=== PATIENT | female | born 1950 | race Caucasian/White ===

== ENCOUNTER → 2018-02-27 08:32 | Outpatient (CLI) | payer MEDICARE, SELFPAY ==
[2018-02-27 09:39] LABS: Alanine Aminotransferase 36 IU/L (9-52); Aspartate Aminotransferase 26 IU/L (14-36); BUN Creatinine Ratio 33.3 (6-22); Calcium 9.2 mg/dL (8.4-10.2); Cholesterol 234 mg/dL (140-199); Estimated Glomerular Filt Rate > 60.0 mL/min (>60); Glucose 101 mg/dL (80-110); HDL Cholesterol 86 mg/dL (40-60); HEMOLYSIS < 15 (0-50); LDL Cholesterol Calculated 131 mg/dL (<100); Potassium 4.6 mmol/L (3.4-5.1); Sodium 140 mmol/L (137-145); Triglycerides 85 mg/dL (35-150)
[2018-02-27 10:07] LABS: TSH w/ Reflex to FT4 0.47 uIU/mL (0.47-4.68)
[2018-02-27 10:35] LABS: Vitamin B12 > 1000 pg/mL (239-931)
== END ==
PROVIDERS: PCP Internal Medicine; Visit Provider Internal Medicine
DX: F41.1 Generalized anxiety disorder (principal); G31.84 Mild cognitive impairment of uncertain or unknown etiology; E78.5 Hyperlipidemia, unspecified; E03.9 Hypothyroidism, unspecified
CPT/HCPCS: 36415; 80048; 80061; 82607; 84443; 84450; 84460

== ENCOUNTER → 2018-04-30 11:12 | Outpatient (CLI) | payer MEDICARE, SELFPAY ==
--- NOTE | 2018-04-30 | DI.MG.S_ITS ---
BILATERAL DIGITAL SCREENING MAMMOGRAM 3D/2D WITH CAD: 04/30/2018 CLINICAL: Routine screening. Comparison is made to exams dated: 04/05/2016 mammogram, 09/05/1999 mammogram, and 08/09/1997 mammogram - [facility]. There are scattered fibroglandular elements in both breasts. Current study was also evaluated with a Computer Aided Detection (CAD) system. No significant masses, calcifications, or other findings are seen in either breast. There has been no significant interval change. IMPRESSION: NEGATIVE There is no mammographic evidence of malignancy. A 1 year screening mammogram is recommended. This exam was interpreted at Station ID: [id number]. NOTE: For mammograms, a report in lay terms will be sent to the patient. Approximately 15% of breast malignancies will not be visualized mammographically. In the management of a palpable breast mass, a negative mammogram must not discourage biopsy of a clinically suspicious lesion. Electronically Signed By: Reinaldo hart/chilo:05/01/2018 17:36:21 letter sent: Normal Exam ACR BI-RADS Category 1: Negative 3341F
== END ==
PROVIDERS: Family Provider Internal Medicine; PCP Internal Medicine; Visit Provider Internal Medicine
DX: Z12.31 Encounter for screening mammogram for malignant neoplasm of breast (principal)
CPT/HCPCS: 77063; 77067

== ENCOUNTER 2018-07-08 08:33 | Day surgery (SDC) | payer MEDICARE, OTHER, SELFPAY ==
--- NOTE | 2018-07-08 | PATH_ITS ---
[facility] Accession Number: [id number] . 01 Material submitted: . BIOPSY AT 10 CM . 02 Diagnosis: 10 CM, Biopsy: Superficial fragments of colonic mucosa with features suggestive of mucosal prolapse. Negative for dysplasia and malignancy. Additional levels were examined. I/07/11/2018 . 02 Electronically signed: . Bere Cullen MD, Pathologist NPI- [id number] . 01 Gross description: . Received in one formalin-filled container labeled with the patient's name and labeled 10 cm, are three less than 0.1 cm to 0.1 cm portions of tissue, entirely submitted in cassette A. ([id number]) /FRR . 02 Pathologist provided ICD-10: K63.5 . 02 CPT . 482417 Specimen Comment: A duplicate report has been generated due to demographic updates. Performed at: 01 [facility] [address] [facility], [place], [place] [id number] MD Ector Joyner MD Phone: [phone] Performed at: [address] [facility] [address] [place], [place] [id number] MD Fantasma Viramontes MD Phone: [phone]
[2018-07-08 09:01] VITALS: BP 145/69; PULSE 75; RESP 16; TEMP 36.2; O2SAT 94; BMI 38.9
[2018-07-08] MEDS: SODIUM CHLORIDE 0.9% 1,000 ML 200 ML IV (09:14)
--- NOTE | 2018-07-08 09:59 | PM.HP.1 ---
History of Present Illness Date Patient Seen: 07/08/18 Time Patient Seen: 09:59 Chief complaint: colonoscopy [id number] Narrative: Patient is a woman here for screening colonoscopy. She has been having diarrhea. No family history of colon cancer. Patient History Medical History History of hyperthyroidism (Acute) Depression (Chronic) Elevated cholesterol (Chronic) Hypothyroidism (acquired) (Chronic) Leg fracture (Resolved) Surgical History Status post hysterectomy (Resolved) Family & Social History Social History: household members spouse Meds Home Medications Medication Instructions Recorded Confirmed Type CA PANTOTHENATE/FOLIC ACID/VIT 1 tab PO Q DAY #0 10/26/11 History (MULTIVITAMIN) Calcium Carbonate/Vitamin D 1 cap PO Q DAY #0 10/26/11 History (#CALCIUM) Fish Oil (#FISH OIL) 1 iu PO Q DAY #0 10/26/11 History Loperamide Hydrochloride (#IMODIUM 2 mg PO PRN #0 10/26/11 History A-D) LOVASTATIN (MEVACOR) 40 mg PO QDAYPM #90 05/16/12 Rx acetaminophen-codeine 1 - 2 tab PO SEE INSTRUCTIONS PRN 09/11/12 Rx #30 Allergies Allergy/AdvReac Type Severity Reaction Status Date / Time No Known Drug Allergies Allergy Verified 07/08/18 08:55 Review of Systems Review of Systems All systems reviewed & are unremarkable except as noted in HPI and below Exam Vital Signs (past 8 hours): - 07/08/18 09:01 Temperature 97.2 F L Pulse Rate 75 Respiratory Rate 16 Blood Pressure 145/69 H Pulse Oximetry 94 Oxygen Delivery Method Room Air Narrative Exam Narrative: Operative obese woman in no apparent distress. Eyes are nonicteric. Lungs are clear to auscultation without rales or rhonchi. Heart regular rate and rhythm without murmur gallop. Abdomen is protuberant soft nontender without mass. Alert and orient x3. Assessment & Plan Plan: Assessment/Plan Narrative: Patient for a screening colonoscopy. She has been having diarrhea. I discussed the procedure with her. Risks of bleeding, perforation which would necessitate a major operation, failure to find removal lesions in the potential tattoo were all discussed. She appears to understand wishes to proceed.
--- NOTE | 2018-07-08 10:05 | PM.PREOP ---
Pre-operative Note Interval Note Pre-op Check: Yes History & Physical exam performed today by Physician Changes: No ASA Class (for procedural sedation): II
--- NOTE | 2018-07-08 10:36 | SUR.OPER ---
stool sample taken for c.diff and o&p diagnostics
[2018-07-08 10:42] VITALS: BP 134/71; PULSE 70; RESP 13; TEMP 36.2; O2SAT 96
[2018-07-08] MEDS: fentaNYL 250 MCG/5 ML INJ IV (10:42)
[2018-07-08] MEDS: MIDAZOLAM 5 MG/5 ML VIAL IV (10:42)
--- NOTE | 2018-07-08 10:44 | P.OP.ENDO_ITS ---
Operative Date/Time/Diagnoses Date of procedure: 07/08/18 Time of procedure: 10:40 Pre-op diagnosis: Screening examination. Intermittent diarrhea for 20 years. Post-op diagnosis: same (Small polyp at 10 cm. Diverticulosis of the sigmoid colon. Small internal hemorrhoids without ulceration.) Procedure & Clinicians Study performed: Colonoscopy with cold biopsy Same procedure as scheduled: Yes Indications: Screening last colonoscopy 15 years ago Surgeon: Ben Madrigal Procedure Notes SCOAP/Timeout: Performed Procedure in detail: The patient was placed in the left lateral decubitus position and underwent IV sedation directed by the surgeon consisting of fentanyl and Versed. Digital exam was remarkable for decreased sphincter tone.. The scope was inserted and advanced through the rectum into the sigmoid , descending, transverse, and ascending colon. Her colon was quite tortuous and she was noted to have sigmoid diverticulosis. Additionally we had to apply pressure in insert a stiffener in order to get through to the cecum.. The cecum was reached identified by the ileocecal valve and the appendiceal opening. The scope was gradually brought out. One Polyp were found at 10 cm from the anal verge. It was quite diminutive.. The scope ultimately was retroflexed in the rectum. The appearance was remarkable for internal hemorrhoids without ulceration. The scope was removed and the patient tolerated the procedure well Scope withdrawal time: 9 min Sedation minutes: 27 Findings: diverticulosis (Sigmoid), internal hemorrhoids (Small) and polyp (10 cm from the anal verge) Recommendations: Colonscopy in 5 years (Unless the polyp is not neoplastic. In that case 10 years would be more appropriate.) Plan for aftercare: Will receive letter regarding pathology Follow up: as needed Disposition: PACU
[2018-07-08 10:47] VITALS: BP 137/66; PULSE 67; RESP 11; O2SAT 96
--- NOTE | 2018-07-08 10:53 | SUR.PHASEI ---
stable pacu, outcomes adequate fro transfer- unable to chart in record.
[2018-07-08 10:54] VITALS: BP 133/74; PULSE 65; RESP 10; TEMP 36.4; O2SAT 96
[2018-07-08 11:02] VITALS: BP 121/71; PULSE 69; RESP 16; TEMP 36.4; O2SAT 96
--- NOTE | 2018-07-08 11:17 | SUR.PHASEII ---
Pt's 's brought in, d/c instructions discussed, both voiced an understanding. pt dressed when ready and left when ready and in stable condition.
--- NOTE | 2018-07-08 11:18 | SUR.PHASEII ---
outcomes met, unable to chart.
[2018-07-08 13:53] LABS: Clostridium Difficile Tox PCR Negative for C. diff
== END 2018-07-08 11:18 | disposition home or self-care (01) ==
PROVIDERS: Family Provider Internal Medicine; PCP Internal Medicine; Visit Provider Specialist
PROC: 0DJD8ZZ Inspection of Lower Intestinal Tract, Via Natural or Artificial Opening Endoscopic (ICD-10-PCS; CPT 45378; principal; 2018-07-08 09:45)
DX: Z12.11 Encounter for screening for malignant neoplasm of colon (principal); K57.30 Diverticulosis of large intestine without perforation or abscess without bleeding; K64.8 Other hemorrhoids; E03.9 Hypothyroidism, unspecified; E78.00 Pure hypercholesterolemia, unspecified; F32.9 Major depressive disorder, single episode, unspecified; K63.5 Polyp of colon
CPT/HCPCS: 45380; 87015; 87045; 87177; 87427; 87493; 87899; 88305; 99152; 99153; J2250; J3010

== ENCOUNTER → 2019-04-23 14:00 | Outpatient (CLI) | payer MEDICARE, OTHER, SELFPAY ==
--- NOTE | 2019-04-23 | DI.RAD.S_ITS ---
PROCEDURE: XR PELVIS 1-2V INDICATIONS: right hip pain for 7 weeks TECHNIQUE: Single view(s) of the pelvis acquired. COMPARISON: None. FINDINGS: Bones: No fractures or dislocations. No suspicious bony lesions. Mild bilateral hip degeneration. Lower lumbar spondylosis. Soft tissues: Visualized bowel gas pattern is normal. No suspicious soft tissue calcifications. IMPRESSION: No fracture. If the patient's pain or other symptoms persist, consider further evaluation with MRI Dictated by: Leonardo Lomas M.D. on 04/23/2019 at 15:05 Approved by: Leonardo Lomas M.D. on 04/23/2019 at 15:06
--- NOTE | 2019-04-23 | DI.RAD.S_ITS ---
PROCEDURE: XR FOOT RT MIN 3V INDICATIONS: R KNEE/FOOT PAIN TECHNIQUE: 3 views of the foot were acquired. COMPARISON: [facility], , FOOT 3V RIGHT, 05/14/2007, 16:31. FINDINGS: Bones: No fractures or dislocations. No suspicious bony lesions. Severe first MTP joint degeneration with [id number]-mt-fvro appearance. Diffuse interphalangeal degenerative joint disease. Diffuse hindfoot and midfoot joint degeneration. Small plantar calcaneal spur. Soft tissues: No tibiotalar joint effusion. Achilles tendon appears normal. IMPRESSION: Severe first MTP joint degeneration, progressed since 05/14/07. Dictated by: Leonardo Lomas M.D. on 04/23/2019 at 15:08 Approved by: Leonardo Lomas M.D. on 04/23/2019 at 15:12
--- NOTE | 2019-04-23 | DI.RAD.S_ITS ---
PROCEDURE: XR KNEE RT 1TO2V INDICATIONS: R KNEE/FOOT PAIN TECHNIQUE: 3 views of the knee were acquired. COMPARISON: [facility], CR, XR PELVIS 1-2V, 04/23/2019, 14:11. [facility], CR, KNEE 3V LEFT, 09/25/2015, 21:43. FINDINGS: Bones: Linear lucency projecting in the patella on the sunrise view only. There is lateral patellar tilt. Moderate medial compartment joint degeneration. Soft tissues: Small joint effusion IMPRESSION: Linear lucency projects on the sunrise view only, suggestive of nondisplaced patellar fracture although technically indeterminate and seen on one view only. Please correlate clinically and if confirmation is necessary, cross-sectional imaging could be performed. Small joint effusion. Moderate degenerative joint disease. Dictated by: Leonardo Lomas M.D. on 04/23/2019 at 15:06 Approved by: Leonardo Lomas M.D. on 04/23/2019 at 15:08
== END ==
PROVIDERS: Family Provider Internal Medicine; PCP Internal Medicine; Referring Provider Acupuncturist; Visit Provider Internal Medicine
DX: M25.561 Pain in right knee (principal); M25.551 Pain in right hip; M25.461 Effusion, right knee; M17.11 Unilateral primary osteoarthritis, right knee; M79.671 Pain in right foot; M19.071 Primary osteoarthritis, right ankle and foot; M77.31 Calcaneal spur, right foot
CPT/HCPCS: 72170; 73560; 73630

== ENCOUNTER → 2019-04-24 07:29 | Outpatient (CLI) | payer MEDICARE, OTHER, SELFPAY ==
[2019-04-24 08:41] LABS: Alanine Aminotransferase 20 IU/L (9-52); Aspartate Aminotransferase 28 IU/L (14-36); BUN Creatinine Ratio 41.7 (6-22); Blood Urea Nitrogen 25 mg/dL (7-17); Calcium 9.3 mg/dL (8.4-10.2); Carbon Dioxide 31 mmol/L (22-32); Chloride 101 mmol/L (98-107); Cholesterol 177 mg/dL (140-199); Estimated Glomerular Filt Rate > 60.0 mL/min (>60); Glucose 101 mg/dL (80-110); HDL Cholesterol 69 mg/dL (40-60); HEMOLYSIS < 15 (0-50); LDL Cholesterol Calculated 81 mg/dL (<100); Potassium 4.2 mmol/L (3.4-5.1); Sodium 138 mmol/L (137-145); Triglycerides 133 mg/dL (35-150)
[2019-04-24 09:08] LABS: TSH w/ Reflex to FT4 0.02 uIU/mL (0.47-4.68)
[2019-04-24 09:44] LABS: Free T4, Direct Thyroxine 2.07 ng/dL (0.78-2.19)
== END ==
PROVIDERS: PCP Internal Medicine; Visit Provider Internal Medicine
DX: E03.9 Hypothyroidism, unspecified (principal); E78.5 Hyperlipidemia, unspecified; M85.80 Other specified disorders of bone density and structure, unspecified site
CPT/HCPCS: 36415; 80048; 80061; 84439; 84443; 84450; 84460

== ENCOUNTER → 2019-09-01 10:43 | Outpatient (CLI) | payer MEDICARE, OTHER, SELFPAY ==
[2019-09-01 12:35] LABS: Alanine Aminotransferase 21 IU/L (<35); Aspartate Aminotransferase 30 IU/L (14-36); Blood Urea Nitrogen 21 mg/dL (7-17); Calcium 9.8 mg/dL (8.4-10.2); Carbon Dioxide 34 mmol/L (22-32); Chloride 98 mmol/L (98-107); Cholesterol 195 mg/dL (140-199); Estimated Glomerular Filt Rate > 60.0 mL/min (>60); Glucose 103 mg/dL (80-110); HDL Cholesterol 80 mg/dL (40-60); HEMOLYSIS < 15 (0-50); LDL Cholesterol Calculated 91 mg/dL (<100); Potassium 4.7 mmol/L (3.4-5.1); Sodium 139 mmol/L (137-145); Triglycerides 122 mg/dL (35-150)
[2019-09-01 13:03] LABS: TSH w/ Reflex to FT4 3.75 uIU/mL (0.47-4.68)
== END ==
PROVIDERS: Family Provider Acupuncturist; PCP Internal Medicine; Visit Provider Internal Medicine
DX: Z13.1 Encounter for screening for diabetes mellitus (principal); E78.5 Hyperlipidemia, unspecified; E03.9 Hypothyroidism, unspecified; M85.80 Other specified disorders of bone density and structure, unspecified site
CPT/HCPCS: 36415; 80048; 80061; 84443; 84450; 84460

== ENCOUNTER → 2019-11-05 08:11 | Outpatient (CLI) | payer MEDICARE, OTHER, SELFPAY ==
[2019-11-05 09:56] LABS: TSH w/ Reflex to FT4 1.77 uIU/mL (0.47-4.68)
== END ==
PROVIDERS: Family Provider Acupuncturist; PCP Internal Medicine; Visit Provider Internal Medicine
DX: E03.9 Hypothyroidism, unspecified (principal)
CPT/HCPCS: 36415; 84443

== ENCOUNTER → 2020-06-15 11:54 | Outpatient (CLI) | payer MEDICARE, OTHER, SELFPAY ==
--- NOTE | 2020-06-15 12:05 | DI.MG.S_ITS ---
Patient Name: KURT LOVE date: 1950 Sex: F Attending Physician: Alexis Indications: Date: 06/15/2020 11:59 At the request of: PEDRO LANGSTON Procedure: MM screening mammo BI BILATERAL DIGITAL SCREENING MAMMOGRAM 3D/2D WITH CAD: 06/15/2020 CLINICAL: Routine screening. Comparison is made to exams dated: 04/30/2018 mammogram, 04/05/2016 mammogram, and 09/05/1999 mammogram - [facility]. There are scattered fibroglandular elements in both breasts. Current study was also evaluated with a Computer Aided Detection (CAD) system. No significant masses, calcifications, or other findings are seen in either breast. There has been no significant interval change. IMPRESSION: NEGATIVE There is no mammographic evidence of malignancy. A 1 year screening mammogram is recommended. This exam was interpreted at Station ID: [id number]. NOTE: For mammograms, a report in lay terms will be sent to the patient. Approximately 15% of breast malignancies will not be visualized mammographically. In the management of a palpable breast mass, a negative mammogram must not discourage biopsy of a clinically suspicious lesion. Electronically Signed By: Mp Hardy M.D., jr/chilo:06/15/2020 15:13:12 letter sent: Normal Exam ACR BI-RADS Category 1: Negative 3341F
== END ==
PROVIDERS: Family Provider Acupuncturist; PCP Internal Medicine; Referring Provider Internal Medicine; Visit Provider Internal Medicine
DX: Z12.31 Encounter for screening mammogram for malignant neoplasm of breast (principal)
CPT/HCPCS: 77063; 77067

== ENCOUNTER → 2020-07-24 14:53 | Outpatient (CLI) | payer MEDICARE, OTHER, SELFPAY ==
[2020-07-25 14:59] LABS: COVID19 Sendout Not Detected (Not Detect)
== END ==
PROVIDERS: Family Provider Acupuncturist; PCP Internal Medicine; Visit Provider Physician Assistant
DX: Z01.812 Encounter for preprocedural laboratory examination (principal)
CPT/HCPCS: 87635

== ENCOUNTER 2020-07-27 13:11 | Day surgery (SDC) | payer MEDICARE, OTHER, SELFPAY ==
--- NOTE | 2020-07-26 17:47 | PM.PREOP ---
Pre-operative Note COVID-19 COVID-19 status: Negative Interval Note History & Physical reviewed/Exam performed by Physician: Yes Changes to H&P: No H&P completed within 30 days and has changed as indicated here:: Ate a cookie at 8 AM. Patient monitored and cleared for anesthesia.
--- NOTE | 2020-07-27 08:08 | PM.OP.1 ---
Operative Date/Time/Diagnoses Date of procedure: 07/27/20 Time of procedure: 13:15 Procedure & Clinicians Procedure: Preoperative diagnoses: 1. Left significant nuclear sclerotic and cortical cataract. 2. Posttraumatic stress disorder 3. History of trauma 4. Anxiety 5. Thyroid disorder 6. Chooses a multifocal Panoptix implant to improve distance at distance intermediate and near. Postoperative diagnoses: 1. Cataract removed by phacoemulsification with placement of posterior chamber intraocular lens. Procedure: Phacoemulsification with posterior chamber intraocular lens implant Surgeon: Leti Weiner MD Complications: None Specimen: None Implant: TFAT00+24.5 Blood loss: None Anesthesia: Retrobulbar with monitored standby Description of procedure: Patient presents with a complaint of decreased vision due to cataract which is affecting activities of daily living. The patient wants surgery to improve vision. The patient was taken to the operating room and given IV sedation. A retrobulbar block consisting of 6 cc of 2% xylocaine without epinephrine mixed half and half with 0.5% Marcaine with 1 cc of hyaluronidase added is placed between the medial and lateral 1/3 of the inferior orbital rim. The eye is manually massaged for 30 sec, prepped using Betadine solution, and draped in the usual sterile fashion. Temporal approach was made, a 1 mm side-port incision was made 90? from the proposed clear corneal incision position. Phenylephrine 1.5% mixed with 1% xylocaine 0.2 cc was placed into the anterior chamber. Viscoat followed by Lev was then placed. A 2.6 mm clear incision with a 2.6 mm blade was placed. A 360 degree capsulorrhexis style capsulotomy was then performed with a cystitome needle on a Healon. Narrow anterior chamber. Hydrodelineation and hydrodissection were performed. The phacoemulsification unit is introduced, and sculpting notice used to groove the central lens. It is then removed in chopping mode. Epi nucleus is removed with epinuclear mode and irrigation aspiration was used to remove the peripheral cortex. The posterior capsule is polished. The Panolptix intraocular lens is selected, inspected, power confirmed, and placed in the posterior chamber. It was carefully centered with the visual axis The wound was stromally hydrated and tested for leaks, there was none and it was left sutureless. Vigamox 0.1 cc was placed into the anterior chamber. Kenalog 0.2 cc was placed in the superior subconjunctival space. A drop of antibiotic and was placed and the eye was patched and shielded. The patient was stable and returned to the recovery room in excellent condition. Dictated by: Leti Weiner MD Copy to: [facility] Same procedure as scheduled: Yes
[2020-07-27] MEDS: PROPARACAINE 0.5% OPHTH SOL 2 DROPS EYE-OP (13:56)
[2020-07-27] MEDS: CATARACT EYE COMPOUND (10 DROPS/SYRINGE) 3 DROPS EYE-OP (13:58)
[2020-07-27 14:02] VITALS: BP 122/70; PULSE 62; RESP 14; TEMP 36.8; O2SAT 100; BMI 34.3
--- NOTE | 2020-07-27 15:13 | SUR.OPER ---
Supine on eye stretcher, head on extension cradle secured with tape. Arms tucked at sides with blanket. Pillow under knees.
[2020-07-27] MEDS: BALANCED SALT IRRIG SOLN NO.2 500 ML, EPINEPHrine 1 MG IRR (15:20)
[2020-07-27] MEDS: CHONDROIDTIN/SOD HYALURONATE 1.05 ML SYRINGE INTRAOCULA (15:20)
[2020-07-27] MEDS: HYALURONATE SODIUM 10 MG/ML SYRINGE INJ (15:21)
[2020-07-27] MEDS: ERYTHROMYCIN OPHTH 1 GM OINT 1 APPLIC EYE-LEFT (15:21)
[2020-07-27] MEDS: TRIAMCINOLONE 50 MG/5 ML VIAL INJ (15:21)
[2020-07-27] MEDS: PHENYLEPHRINE/LIDOCAINE VIAL (OR) 0.2 ML EYE-OP (15:22)
[2020-07-27] MEDS: MOXIFLOXACIN INJ 5 MG/ML VIAL EYE-OP (15:22)
[2020-07-27] MEDS: LIDOCAINE 2% 4 ML, BUPIVACAINE 0.5% (PF) 4 ML, HYALURONIDASE 150 UNIT INJ (15:23)
[2020-07-27 15:45] VITALS: BP 124/60; PULSE 60; RESP 17; TEMP 36.7; O2SAT 98
== END 2020-07-27 16:00 | disposition home or self-care (01) ==
LOC: OR 13:14
PROVIDERS: Family Provider Acupuncturist; PCP Internal Medicine; Referring Provider Ophthalmology; Visit Provider Ophthalmology
PROC: (CPT 66984; principal; 2020-07-27 15:15)
DX: H25.812 Combined forms of age-related cataract, left eye (principal); F43.10 Post-traumatic stress disorder, unspecified; F41.9 Anxiety disorder, unspecified
CPT/HCPCS: 66984; J0171; J2250; J3010; J3301; J3470; V2788

== ENCOUNTER → 2020-08-07 14:55 | Outpatient (CLI) | payer MEDICARE, OTHER, SELFPAY ==
[2020-08-08 13:21] LABS: COVID19 Sendout Not Detected (Not Detect)
== END ==
PROVIDERS: Family Provider Acupuncturist; PCP Internal Medicine; Visit Provider Nurse Practitioner
DX: Z01.812 Encounter for preprocedural laboratory examination (principal)
CPT/HCPCS: 87635

== ENCOUNTER 2020-08-10 09:20 | Day surgery (SDC) | payer MEDICARE, OTHER, SELFPAY ==
--- NOTE | 2020-08-09 12:04 | PM.PREOP ---
Pre-operative Note COVID-19 COVID-19 status: Negative Interval Note History & Physical reviewed/Exam performed by Physician: Yes Changes to H&P: No
--- NOTE | 2020-08-09 12:09 | P.OP_ITS ---
Operative Date/Time/Diagnoses Date of procedure: 08/10/20 Time of procedure: 10:45 Procedure & Clinicians Procedure: Preoperative diagnoses: 1. Right nuclear sclerotic and cortical cataract. 2. Posttraumatic stress disorder 3. Anxiety 4. Thyroid disorder 5. These are for a multifocal implant 6. Strabismus Postoperative diagnoses: 1. Cataract removed by phacoemulsification with placement of posterior chamber intraocular lens. Procedure: Phacoemulsification with posterior chamber intraocular lens implant Surgeon: Leti Weiner MD Complications: None Specimen: None Implant:TFAT00+25.0 Blood loss: None Anesthesia: Retrobulbar with monitored standby Description of procedure: Patient presents with a complaint of decreased vision due to cataract which is affecting activities of daily living distance and near. The patient wants surgery to improve vision. She lacks a multifocal panoptix IOL which has been so inserted previously into her left. She does wear prism glasses and understands she will still need these to reduce double vision. The patient was taken to the operating room and given IV sedation. A retrobulbar block consisting of 6 cc of 2% xylocaine without epinephrine mixed half and half with 0.5% Marcaine with 1 cc of hyaluronidase added is placed between the medial and lateral 1/3 of the inferior orbital rim. The eye is manually massaged for 30 sec, prepped using Betadine solution, and draped in the usual sterile fashion. Temporal approach was made, a 1 mm side-port incision was made 90? from the proposed clear corneal incision position. Phenylephrine 1.5% mixed with 1% xylocaine 0.2 cc was placed into the anterior chamber. Viscoat followed by Healon was then placed. A 2.6 mm clear incision with a 2.6 mm blade was placed. A 360 degree capsulorrhexis style capsulotomy was then performed with a cystitome needle on a Healon. There is a narrow anterior chamber Hydrodelineation and hydrodissection were performed. The phacoemulsification unit is introduced, and sculpting notice used to groove the central lens. It is then removed in chopping mode. Epi nucleus is removed with epinuclear mode and irrigation aspiration was used to remove the peripheral cortex. The posterior capsule is polished. The intraocular lens is selected, inspected, power confirmed, and placed in the posterior chamber. It was carefully centered in the pupillary axis The wound was stromally hydrated and tested for leaks, there was none and it was left sutureless. Vigamox 0.1 cc was placed into the anterior chamber. Kenalog 0.2 cc was placed in the superior subconjunctival space. A drop of antibiotic and was placed and the eye was patched and shielded. The patient was stable and returned to the recovery room in excellent condition. Dictated by: Leti Weiner MD Copy to: [facility] Same procedure as scheduled: Yes
[2020-08-10] MEDS: PROPARACAINE 0.5% OPHTH SOL 2 DROPS EYE-OP (10:19)
[2020-08-10 10:20] VITALS: BP 109/56; PULSE 65; RESP 12; TEMP 36.2; O2SAT 97; BMI 34.3
[2020-08-10] MEDS: CATARACT EYE COMPOUND (10 DROPS/SYRINGE) 3 DROPS EYE-OP (10:35)
[2020-08-10] MEDS: ERYTHROMYCIN OPHTH 1 GM OINT 1 APPLIC EYE-RIGHT (11:29)
[2020-08-10] MEDS: CHONDROIDTIN/SOD HYALURONATE 1.05 ML SYRINGE INTRAOCULA (11:29)
[2020-08-10] MEDS: HYALURONATE SODIUM 10 MG/ML SYRINGE INJ (11:30)
[2020-08-10] MEDS: PHENYLEPHRINE/LIDOCAINE VIAL (OR) 0.2 ML EYE-OP (11:31)
[2020-08-10] MEDS: TRIAMCINOLONE 50 MG/5 ML VIAL INJ (11:31)
[2020-08-10] MEDS: MOXIFLOXACIN INJ 5 MG/ML VIAL EYE-OP (11:31)
[2020-08-10] MEDS: LIDOCAINE 2% 4 ML, BUPIVACAINE 0.5% (PF) 4 ML, HYALURONIDASE 150 UNIT INJ (11:32)
[2020-08-10] MEDS: BALANCED SALT IRRIG SOLN NO.2 500 ML, EPINEPHrine 1 MG IRR (11:32)
[2020-08-10 12:09] VITALS: BP 103/58; PULSE 56; RESP 14; TEMP 36.4; O2SAT 97
== END 2020-08-10 12:27 | disposition home or self-care (01) ==
LOC: OR 09:25
PROVIDERS: Family Provider Acupuncturist; PCP Internal Medicine; Referring Provider Internal Medicine; Visit Provider Ophthalmology
PROC: (CPT 66984; principal; 2020-08-10 10:45)
DX: H25.811 Combined forms of age-related cataract, right eye (principal); H50.9 Unspecified strabismus; F41.9 Anxiety disorder, unspecified; F43.10 Post-traumatic stress disorder, unspecified
CPT/HCPCS: 66984; J0171; J2704; J3301; J3470; V2788

== ENCOUNTER → 2020-11-22 14:47 | Outpatient (ROUT) | payer MEDICARE, OTHER, SELFPAY ==
[2020-11-22 14:50] LABS: RBC Urine None Seen (0-5/HPF)
[2020-11-22 15:00] LABS: Appearance Urine UA CLOUDY; Bilirubin Urine UA 1+ (NEGATIVE); Color Urine UA YELLOW; Glucose Urine UA NEGATIVE (Negative); Ketones Urine UA TRACE (NEGATIVE); Leukocyte Esterase Urine UA TRACE (NEGATIVE); Nitrite Urine UA POSITIVE (Negative); Occult Blood Urine UA NEGATIVE (Negative); Protein Urine UA 1+ (Negative); Specific Gravity Urine UA 1.025 (1.000-1.035); Urobilinogen Urine UA 0.2 E.U./dL (0.2)
[2020-11-22 15:15] LABS: Bacteria Urine Many (>30); Calcium Oxalate Crystals Urine Moderate; Culture Indicated Urine Specimen Cultured; Mucus Urine 1+ (Negative); Squamous Epithelial Cell Urine 1-5 /HPF (0-5/HPF); WBC Urine 5-10/HPF (0-5/HPF)
[2020-11-22 15:29] LABS: Ictotest Urine Negative (Negative)
[2020-11-22 15:46] LABS: Alanine Aminotransferase 16 IU/L (<35); Albumin 4.3 g/dL (3.5-5.0); Albumin Globulin Ratio 1.5 (1.0-2.8); Alkaline Phosphatase 80 U/L (38-126); Aspartate Aminotransferase 24 IU/L (14-36); BUN Creatinine Ratio 28.6 (6-22); Bilirubin Total 0.4 mg/dL (0.2-1.3); Blood Urea Nitrogen 22 mg/dL (7-17); Calcium 9.8 mg/dL (8.4-10.2); Carbon Dioxide 31 mmol/L (22-32); Chloride 100 mmol/L (98-107); Cholesterol 211 mg/dL (140-199); Estimated Glomerular Filt Rate > 60.0 mL/min (>60); Globulin 2.9 g/dL (1.7-4.1); Glucose 101 mg/dL (80-110); HDL Cholesterol 95 mg/dL (40-60); HEMOLYSIS < 15 (0-50); LDL Cholesterol Calculated 95 mg/dL (<100); Potassium 4.3 mmol/L (3.4-5.1); Sodium 135 mmol/L (137-145); Total Protein 7.2 g/dL (6.3-8.2); Triglycerides 105 mg/dL (35-150)
== END ==
PROVIDERS: Family Provider Acupuncturist; PCP Internal Medicine; Visit Provider Internal Medicine
DX: R30.0 Dysuria (principal); E03.9 Hypothyroidism, unspecified; E78.5 Hyperlipidemia, unspecified
CPT/HCPCS: 80053; 80061; 81001; 84443; 87077; 87086; 87186

== ENCOUNTER → 2020-12-19 07:50 | Outpatient (CLI) | payer MEDICARE, OTHER, SELFPAY ==
[2020-12-19] MEDS: COVID-19 VACC, Ad26(JANSSEN)/PF 0.5 ML IM (07:58)
== END ==
PROVIDERS: Family Provider Acupuncturist; PCP Internal Medicine; Visit Provider Internal Medicine
DX: Z23 Encounter for immunization (principal)
CPT/HCPCS: 0031A; 91303

== ENCOUNTER → 2021-09-25 13:40 | Outpatient (CLI) | payer MEDICARE, OTHER, SELFPAY ==
--- NOTE | 2021-09-25 13:43 | DI.MG.S_ITS ---
BILATERAL DIGITAL SCREENING MAMMOGRAM 3D/2D WITH CAD: 09/25/2021 CLINICAL: Routine screening. Comparison is made to exams dated: 06/15/2020 mammogram, 04/30/2018 mammogram, and 04/05/2016 mammogram - [facility]. There are scattered fibroglandular elements in both breasts. Current study was also evaluated with a Computer Aided Detection (CAD) system. No significant masses, calcifications, or other findings are seen in either breast. There has been no significant interval change. IMPRESSION: NEGATIVE There is no mammographic evidence of malignancy. A 1 year screening mammogram is recommended. This exam was interpreted at Station ID: [id number]. NOTE: For mammograms, a report in lay terms will be sent to the patient. Approximately 15% of breast malignancies will not be visualized mammographically. In the management of a palpable breast mass, a negative mammogram must not discourage biopsy of a clinically suspicious lesion. Electronically Signed By: Mp Hardy M.D., jr/chilo:09/25/2021 14:10:15 letter sent: Normal Exam ACR BI-RADS Category 1: Negative 3341F
== END ==
PROVIDERS: Family Provider Acupuncturist; PCP Internal Medicine; Referring Provider Internal Medicine; Visit Provider Internal Medicine
DX: Z12.31 Encounter for screening mammogram for malignant neoplasm of breast (principal)
CPT/HCPCS: 77063; 77067

== ENCOUNTER → 2022-10-15 15:14 | Outpatient (CLI) | payer MEDICARE, OTHER, SELFPAY ==
--- NOTE | 2022-10-15 15:19 | DI.MG.S_ITS ---
BILATERAL DIGITAL SCREENING MAMMOGRAM 3D/2D WITH CAD: 10/15/2022 CLINICAL: Routine screening. Comparison is made to exams dated: 09/25/2021 mammogram, 06/15/2020 mammogram, and 04/30/2018 mammogram - [facility]. There are scattered areas of fibroglandular density in both breasts (category b / 25%-50% glandular tissue). Current study was also evaluated with a Computer Aided Detection (CAD) system. No significant masses, calcifications, or other findings are seen in either breast. There has been no significant interval change. IMPRESSION: NEGATIVE There is no mammographic evidence of malignancy. A 1 year screening mammogram is recommended. Based on the Tyrer Cuzick model (a risk assessment model) the patient's lifetime risk is 3.7% and her 10 year risk is 2.5%. According to the ACR, ACS, and NCCN guidelines, an annual breast MRI exam along with mammogram is recommended if the patient's lifetime risk is 20% or greater. This exam was interpreted at Station ID: [id number]. NOTE: For mammograms, a report in lay terms will be sent to the patient. Approximately 15% of breast malignancies will not be visualized mammographically. In the management of a palpable breast mass, a negative mammogram must not discourage biopsy of a clinically suspicious lesion. Electronically Signed By: Mello ayala/chilo:10/16/2022 08:41:17 letter sent: Normal Exam ACR BI-RADS Category 1: Negative 3341F
== END ==
PROVIDERS: Family Provider Acupuncturist; PCP Internal Medicine; Referring Provider Internal Medicine; Visit Provider Internal Medicine
DX: Z13.820 Encounter for screening for osteoporosis (principal); Z12.31 Encounter for screening mammogram for malignant neoplasm of breast; M85.852 Other specified disorders of bone density and structure, left thigh; Z78.0 Asymptomatic menopausal state
CPT/HCPCS: 77063; 77067; 77080

== ENCOUNTER 2023-03-16 08:09 | Emergency (ER) | payer MEDICARE, OTHER, SELFPAY ==
[2023-03-16 08:15] VITALS: BP 135/71; PULSE 53; RESP 16; O2SAT 99; BMI 30.7
--- NOTE | 2023-03-16 08:20 | ED_ITS ---
HPI - General Adult General Chief complaint: Dental/Oral Stated complaint: chronic sinus inf, recent tooth extract, bp issues Time Seen by Provider: 03/16/23 08:20 History of Present Illness HPI narrative: 72-year-old female former smoker with history of chronic sinusitis, hyperlipidemia presents with a chief complaint concerns about the potential need for antibiotics for her sinusitis. She states she has been battling sinusitis for over 20 years and feels fullness in her sinuses but denies fever or ongoing drainage. She had most recently been on 2 courses of antibiotics as prescribed by a dentist both prior and after a few teeth being pulled. At the time she was having drainage. She denies current purulent drainage or fever. She has no headache, blurred vision nor chest pain or extremity numbness, tingling or weakness. Additionally she states her blood pressure is normally low and is concerned about her levels in the 130s today. Related Data Home Medications Medication Instructions Recorded Confirmed CA PANTOTHENATE/FOLIC ACID/VIT 1 tab PO Q DAY ##0 10/26/11 08/10/20 (MULTIVITAMIN) Calcium Carbonate/Vitamin D 1 cap PO Q DAY ##0 10/26/11 08/10/20 (#CALCIUM) Fish Oil (#FISH OIL) 1 iu PO Q DAY ##0 10/26/11 08/10/20 Loperamide Hydrochloride (#IMODIUM 2 mg PO PRN PRN Diarrhea ##0 10/26/11 08/10/20 A-D) escitalopram oxalate 20 mg tablet 20 mg PO DAILY 06/02/20 08/10/20 nortriptyline 25 mg capsule 50 mg PO BEDTIME 06/02/20 08/10/20 temazepam 15 mg capsule 15 mg PO BEDTIME PRN Sleep 06/02/20 08/10/20 trazodone 50 mg tablet 50 mg PO BEDTIME PRN Sleep 06/02/20 07/27/20 atorvastatin 20 mg tablet 20 mg PO BEDTIME 07/27/20 08/10/20 bupropion HCl 100 mg tablet,12 hr 50 mg PO BID 07/27/20 08/10/20 sustained-release clobetasol 0.05 % scalp solution 1 applic topical DAILY 07/27/20 08/10/20 levothyroxine 25 mcg tablet 0.175 mcg PO DAILY 07/27/20 08/10/20 oxybutynin chloride 5 mg tablet 5 mg PO BEDTIME 07/27/20 08/10/20 valacyclovir 1 gram tablet 1,000 mg PO DAILY 07/27/20 08/10/20 Allergies Allergy/AdvReac Type Severity Reaction Status Date / Time high fructose AdvReac Mild explosive Uncoded 08/10/20 10:08 diarrhea Review of Systems Review of Systems Narrative: GENERAL: Denies chills, fatigue, malaise, fever, sweats. HEENT: See HPI RESPIRATORY: Denies dyspnea, cough, wheezing, hemoptysis, sputum. CARDIOVASCULAR: Denies chest pain, palpitations, orthopnea, edema, GASTROINTESTINAL: Denies nausea, vomiting, abdominal pain, diarrhea, constipation, melena. : Denies dysuria, frequency, incontinence, hematuria, urinary retention. MUSCULOSKELETAL: denies weakness, joint pain, or bony pain SKIN: Denies rash, skin lesions, or other NEUROLOGIC: Denies weakness, headache, numbness, change in speech, confusion, seizures, incoordination. PSYCHIATRIC: No concerning psychosocial issues. 12 point review of systems is negative except for those stated above Patient History Medical History Anxiety Arthritis Depression Elevated cholesterol History of hyperthyroidism Hypothyroidism (acquired) Leg fracture Osteoporosis PTSD (post-traumatic stress disorder) Skin cancer Surgical History Status post hysterectomy Social History household members: spouse Smoking Status: Former smoker alcohol intake: former Smoking Status: Former smoker Substance Use Type: does not use Exam Narrative Exam Narrative: GEN: AOx3 and in mild distress, GCS 15 EYES: Pupils are equal, round, and reactive to light and accommodation. Extraoccular muscles are intact bilaterally. There is no subconjunctival hemorrhage or exudate. ENT: No purulent drainage, no pain on palpation of frontal or maxillary sinuses. Intraoral exam would suggest appropriate healing of recent dental work, no swelling, drainage or evidence of abscess. CHEST: Lungs are clear to auscultation bilaterally and free of wheezes, rales, or rhonchi. Heart rate is regular rhythm, there are no murmurs, clicks, rubs, or gallops. There is no chest wall tenderness. ABD: Abdomen is soft and nontender. There is no guarding or rebound. Bowel sounds are normal in all 4 quadrants. There is no mass or organomegaly. EXT: Full painless ROM of all extremities with no loss of sensation or strength. SKIN: Warm, pink, and dry. No erythema or rash Initial Vital Signs Initial Vital Signs: Vital Signs Pulse Rate 53 L 03/16/23 08:15 Respiratory Rate 16 03/16/23 08:15 Blood Pressure 135/71 03/16/23 08:15 Pulse Oximetry 99 03/16/23 08:15 Oxygen Delivery Method Room Air 03/16/23 08:15 Course Vital Signs Vital signs: Vital Signs - 8 hr 03/16/23 08:15 Pulse Rate 53 L Respiratory Rate 16 Blood Pressure 135/71 Pulse Oximetry 99 Oxygen Delivery Method Room Air Medical Decision Making [facility] Narrative Medical decision making narrative: [72] year old patient presents with chronic sinus Multiple etiologies for patient's symptoms considered including, but not limited to: [Chronic sinusitis versus acute sinusitis versus dental infection versus other] Prior Charts reviewed in our EMR Primary Historian: patient Patient with very reassuring history and physical exam. There is no obvious indication for antibiotics at this time, no evidence of dental infection, no purulent drainage or fever Findings and discharge diagnosis discussed with patient/family followed by verbalization of understanding Return precautions discussed with patient/family whom verbalize understanding of diagnosis and plan Discharge Plan Departure Patient Disposition: Home Clinical Impression: Sinusitis Instructions: DI for Sinusitis Activity Restrictions/Additional Instructions: *You have been diagnosed with [chronic sinusitis. As we discuss based on your history and physical exam there is no indication for antibiotics at this time.] *What to do: *Please continue to take your regular medications as directed. Please consider changing your antihistamine to a different [id number] options such as Cydni. Take it twice daily for the next week. Also consider a decongestant such as Sudafed to help drain your sinuses. *Please follow up with your primary care provider in 2-3 days, call for an appointment. Let them know you were seen in the Emergency Department and that we ask that you be seen in follow up. We will electronically transmit a record of today's note if your PCP is in our system As we discussed please contact Dr. Perea at [facility]. Let them know that you were seen in the emergency department and we would like you seen in follow- up. I will electronically transmitted a copy of today's note *Return to Emergency Department if you should have any new, worsening or concerning symptoms, such as [fever greater than 101 F, shaking chills, worsening pain, persistent vomiting or other bothersome symptoms] Prescriptions: No Action nortriptyline 25 mg capsule 50 mg PO BEDTIME temazepam 15 mg capsule 15 mg PO BEDTIME PRN (Reason: Sleep) escitalopram oxalate 20 mg tablet 20 mg PO DAILY trazodone 50 mg tablet 50 mg PO BEDTIME PRN (Reason: Sleep) Loperamide Hydrochloride (#IMODIUM A-D) 2 mg PO PRN PRN (Reason: Diarrhea) Qty: 0 Fish Oil (#FISH OIL) 1 iu PO Q DAY Qty: 0 Calcium Carbonate/Vitamin D (#CALCIUM) 1 cap PO Q DAY Qty: 0 CA PANTOTHENATE/FOLIC ACID/VIT (MULTIVITAMIN) 1 tab PO Q DAY Qty: 0 atorvastatin 20 mg Tablet 20 mg PO BEDTIME levothyroxine 25 mcg Tablet 0.175 mcg PO DAILY oxybutynin chloride 5 mg Tablet 5 mg PO BEDTIME valacyclovir 1 gram Tablet 1,000 mg PO DAILY bupropion HCl 100 mg Tablet Sustained-Release 12 Hr 50 mg PO BID clobetasol 0.05 % Solution 1 applic TOPICAL DAILY Referrals: Ruddy Perea MD [Physician] - Lexi Espinoza MD [Primary Care Provider] - Stand Alone Forms: Patient Portal/API
== END 2023-03-16 08:51 | disposition home or self-care (01) ==
PROVIDERS: Emergency Provider Emergency Medicine; Family Provider Acupuncturist; PCP Internal Medicine
DX: J32.9 Chronic sinusitis, unspecified (principal)
CPT/HCPCS: 99281

== ENCOUNTER 2023-09-09 10:50 | Emergency (ER) | payer MEDICARE, OTHER, SELFPAY ==
[2023-09-09 11:04] VITALS: BP 118/56; PULSE 55; RESP 18; TEMP 36.6; O2SAT 100; BMI 32.9
--- NOTE | 2023-09-09 11:09 | DI.RAD.S_ITS ---
PROCEDURE: XR KNEE RT 3V INDICATIONS: R knee pain. No injury TECHNIQUE: 3 views of the knee were acquired. COMPARISON: [facility], CR, XR KNEE RT 1TO2V, 04/23/2019, 14:11. FINDINGS: Bones: No fractures or dislocations. No suspicious bony lesions. Moderate tricompartmental periarticular osteophyte formation. Soft tissues: No joint effusion. No suspicious soft tissue calcifications. IMPRESSION: Osteoarthritis. No acute fracture. No osseous lesion. If symptoms and/or clinical suspicion for pathology persist, further assessment with repeat, or advanced imaging (e.g., CT, MRI, or bone scan) may be helpful for further assessment. Dictated by: Adama Givens M.D. on 09/09/2023 at 11:47 Approved by: Adama Givens M.D. on 09/09/2023 at 11:48
--- NOTE | 2023-09-09 11:40 | PC.NURSE ---
Patient reports ongoing bilateral lower extremity issues related to arthritis; recently her RLE has become so painful (feet and hip) that she feels that her gait has changed and is now badly effecting her R knee. She states she can no longer walk without pain; takes 3 advil, 1 tylenol for pain control at home but that's not cutting it anymore.
--- NOTE | 2023-09-09 12:19 | ED.LOWEXIN ---
HPI - Extremity Injury (Lower) <Karissa Amaya PA-C - Last Filed: 09/09/23 12:23> General Chief Complaint: Extremity Injury, Lower Stated Complaint: can't put weight on rt knee Time Seen by Provider: 09/09/23 12:01 Source: patient and family Mode of arrival: Wheelchair History of Present Illness HPI Narrative: 72-year-old female with past medical history arthritis presents to the ED with 3 days of right-sided knee pain. Patient states no trauma when the pain started 3 days ago. Patient does have a history of arthritis. Patient states that it has been getting harder to bear weight and that knee and walk. Patient also endorses that this morning patient lost her balance, suffered a mechanical fall. Patient denies that she suffered any injuries from the fall. Patient did not strike the right knee or sustain any other injuries. Patient denies numbness, tingling, weakness. Patient states that she was unable to take any pain medication at home since the pain medication was in a cabinet way too high for her to reach. Related Data Home Medications Medication Instructions Recorded Confirmed CA PANTOTHENATE/FOLIC ACID/VIT 1 tab PO Q DAY ##0 10/26/11 08/10/20 (MULTIVITAMIN) Calcium Carbonate/Vitamin D 1 cap PO Q DAY ##0 10/26/11 08/10/20 (#CALCIUM) Fish Oil (#FISH OIL) 1 iu PO Q DAY ##0 10/26/11 08/10/20 Loperamide Hydrochloride (#IMODIUM 2 mg PO PRN PRN Diarrhea ##0 10/26/11 08/10/20 A-D) escitalopram oxalate 20 mg tablet 20 mg PO DAILY 06/02/20 08/10/20 nortriptyline 25 mg capsule 50 mg PO BEDTIME 06/02/20 08/10/20 temazepam 15 mg capsule 15 mg PO BEDTIME PRN Sleep 06/02/20 08/10/20 trazodone 50 mg tablet 50 mg PO BEDTIME PRN Sleep 06/02/20 07/27/20 atorvastatin 20 mg tablet 20 mg PO BEDTIME 07/27/20 08/10/20 bupropion HCl 100 mg tablet,12 hr 50 mg PO BID 07/27/20 08/10/20 sustained-release clobetasol 0.05 % scalp solution 1 applic topical DAILY 07/27/20 08/10/20 levothyroxine 25 mcg tablet 0.175 mcg PO DAILY 07/27/20 08/10/20 oxybutynin chloride 5 mg tablet 5 mg PO BEDTIME 07/27/20 08/10/20 valacyclovir 1 gram tablet 1,000 mg PO DAILY 07/27/20 08/10/20 Allergies Allergy/AdvReac Type Severity Reaction Status Date / Time No Known Drug Allergies Allergy Verified 09/09/23 11:08 Review of Systems <Karissa Amaya PA-C - Last Filed: 09/09/23 12:23> Constitutional Constitutional: Denies chills, Denies fatigue, Denies fever(s), Denies frequent falls, Denies lethargy and Denies weakness Eyes Eyes: Denies change in vision, Denies eye discharge, Denies irritation and Denies loss of vision ENT Ears, Nose, Mouth, and Throat: Denies change in voice, Denies dizziness, Denies neck pain, Denies sore throat and Denies throat swelling Cardiovascular Cardiovascular: Denies chest pain, Denies irregular heart rhythm, Denies lightheadedness, Denies palpitations, Denies dyspnea, Denies dyspnea on exertion and Denies orthopnea Respiratory Respiratory: Denies cough, Denies dyspnea, Denies dyspnea on exertion and Denies wheezing Gastrointestinal Gastrointestinal: Denies abdominal pain, Denies change in bowel habits, Denies diarrhea, Denies nausea and Denies vomiting Musculoskeletal Musculoskeletal: Denies neck pain and Denies numbness Comments: Right-sided knee pain Integumentary/Breasts Skin/Breast: Denies pruritus, Denies erythema, Denies rash and Denies wounds Neurologic Neurologic: Denies behavioral changes, Denies confusion, Denies dizziness, Denies frequent falls, Denies loss of vision, Denies numbness and Denies weakness Psychiatric Psychiatric: Denies anxiety, Denies behavioral changes, Denies confusion, Denies depression, Denies homicidal ideation and Denies suicidal ideation Endocrine Endocrine: Denies fatigue, Denies flushing and Denies palpitations Hematologic/Lymphatic Hematologic/Lymphatic: Denies easy bruising Allergic/Immunologic Allergic/Immunologic: Denies urticaria, Denies throat swelling and Denies wheezing Patient History <Karissa Amaya PA-C - Last Filed: 09/09/23 12:23> Medical History Skin cancer PTSD (post-traumatic stress disorder) Anxiety Osteoporosis Arthritis Hypothyroidism (acquired) History of hyperthyroidism Elevated cholesterol Depression Leg fracture Surgical History Status post hysterectomy Social History household members: spouse Smoking Status: Former smoker alcohol intake: former Smoking Status: Former smoker alcohol intake frequency: holidays/special occasions only Substance Use Type: marijuana Exam <Karissa Amaya PA-C - Last Filed: 09/09/23 12:23> Narrative Exam Narrative: Const General:?cooperative, healthy appearing and comfortable HENMT Head:?normal to inspection Ears:?hearing grossly normal bilaterally Nose:?external nose normal Face and sinus:?normal facial exam and sinuses nontender Mouth:?oral mucosae normal Throat:?posterior oropharynx normal Eyes General:?appearance normal, both eyes and all related structures Neck Neck:?normal visual inspection and no lymphadenopathy noted Resp Effort & Inspection:?normal respiratory effort Auscultation:?clear to auscultation bilaterally Cardio Rate:?regular rate Rhythm:?regular rhythm Musculoskeletal Right knee appears normal, no swelling, no erythema, no deformities. No tenderness to palpation. Strength and sensation is intact. There is full range of motion. Patient is neurovascularly intact. Neuro General:?patient alert, patient awake and patient oriented x3 Initial Vital Signs Initial Vital Signs: Vital Signs Temperature 97.8 F 09/09/23 11:04 Pulse Rate 55 L 09/09/23 11:04 Respiratory Rate 18 09/09/23 11:04 Blood Pressure 118/56 L 09/09/23 11:04 Pulse Oximetry 100 09/09/23 11:04 Oxygen Delivery Method Room Air 09/09/23 11:04 <Stephanie Parish DO - Last Filed: 09/10/23 11:20> Initial Vital Signs Initial Vital Signs: Vital Signs Temperature 97.8 F 09/09/23 11:04 Pulse Rate 55 L 09/09/23 11:04 Respiratory Rate 18 09/09/23 11:04 Blood Pressure 118/56 L 09/09/23 11:04 Pulse Oximetry 100 09/09/23 11:04 Oxygen Delivery Method Room Air 09/09/23 11:04 Course <Karissa Amaya PA-C - Last Filed: 09/09/23 12:23> Orders Ordered: Discontinued Medications Ketorolac Tromethamine (Ketorolac 30 Mg/Ml Vial) 30 mg IM NOW ONE Stop: 09/09/23 12:17 Last Admin: 09/09/23 12:22 Dose: 30 mg Documented By: ES Vital Signs Vital signs: Vital Signs - 8 hr 09/09/23 11:04 Temperature 97.8 F Pulse Rate 55 L Respiratory Rate 18 Blood Pressure 118/56 L Pulse Oximetry 100 Oxygen Delivery Method Room Air <Stephanie Parish DO - Last Filed: 09/10/23 11:20> Orders Ordered: Discontinued Medications Ketorolac Tromethamine (Ketorolac 30 Mg/Ml Vial) 30 mg IM NOW ONE Stop: 09/09/23 12:17 Last Admin: 09/09/23 12:22 Dose: 30 mg Documented By: ES Vital Signs Vital signs: Vital Signs - 8 hr 09/09/23 11:04 Temperature 97.8 F Pulse Rate 55 L Respiratory Rate 18 Blood Pressure 118/56 L Pulse Oximetry 100 Oxygen Delivery Method Room Air MDM - Extremity Injury (Lower) <Karissa Amaya PA-C - Last Filed: 09/09/23 12:23> MDM Narrative Medical decision making narrative: 72-year-old female with past medical history arthritis presents to the ED with 3 days of right-sided knee pain. Concern for fracture/dislocation versus musculoskeletal sprain/strain versus arthritis versus other. Obtained x-ray which shows no fractures or dislocations, confirms arthritis. Will treat pain with Toradol. Recommend continued use of ibuprofen, Tylenol at home. Patient does have a PCP appointment on September 12. Patient agrees to follow-up with PCP regarding the knee pain. ED return precautions were also discussed with patient. Patient verbalized understanding. Medical records reviewed: Yes Discharge Plan Departure Patient Disposition: Home Clinical Impression: Knee pain Qualifiers: Chronicity: acute Laterality: right Qualified Code(s): M25.561 - Pain in right knee Instructions: DI for Knee Pain Activity Restrictions/Additional Instructions: You were evaluated in the ED today for right-sided knee pain. Your x-ray does not show any fractures or dislocations but does show arthritis. You were given a injection of Toradol for pain control. Please continue to take Tylenol and ibuprofen at home to control the pain. Please keep your appointment with your PCP as scheduled for later this week. Return to the ED if you have worsening symptoms, numbness, tingling, weakness. Prescriptions: No Action nortriptyline 25 mg capsule 50 mg PO BEDTIME temazepam 15 mg capsule 15 mg PO BEDTIME PRN (Reason: Sleep) escitalopram oxalate 20 mg tablet 20 mg PO DAILY trazodone 50 mg tablet 50 mg PO BEDTIME PRN (Reason: Sleep) Loperamide Hydrochloride (#IMODIUM A-D) 2 mg PO PRN PRN (Reason: Diarrhea) Qty: 0 Fish Oil (#FISH OIL) 1 iu PO Q DAY Qty: 0 Calcium Carbonate/Vitamin D (#CALCIUM) 1 cap PO Q DAY Qty: 0 CA PANTOTHENATE/FOLIC ACID/VIT (MULTIVITAMIN) 1 tab PO Q DAY Qty: 0 atorvastatin 20 mg Tablet 20 mg PO BEDTIME levothyroxine 25 mcg Tablet 0.175 mcg PO DAILY oxybutynin chloride 5 mg Tablet 5 mg PO BEDTIME valacyclovir 1 gram Tablet 1,000 mg PO DAILY bupropion HCl 100 mg Tablet Sustained-Release 12 Hr 50 mg PO BID clobetasol 0.05 % Solution 1 applic TOPICAL DAILY Referrals: Lexi Espinoza MD [Primary Care Provider] - Stand Alone Forms: Patient Portal/API ED Sign-out <Stephanie Parish DO - Last Filed: 09/10/23 11:20> Cosign ED Attending Brandinature Attestation: I was immediately available in the department for consultation.
[2023-09-09] MEDS: KETOROLAC 30 MG/ML VIAL IM (12:22)
== END 2023-09-09 12:29 | disposition home or self-care (01) ==
PROVIDERS: Emergency Provider Student in an Organized Health Care Education/Training Program; Family Provider Acupuncturist; PCP Internal Medicine
DX: M25.561 Pain in right knee (principal)
CPT/HCPCS: 73562; 96372; 99283; J1885

== ENCOUNTER → 2023-10-01 11:10 | Outpatient (CLI) | payer MEDICARE, OTHER, SELFPAY ==
--- NOTE | 2023-10-01 11:33 | DI.RAD.S_ITS ---
PROCEDURE: XR FOOT LT MIN 3V INDICATIONS: bilateral hand and foot pain TECHNIQUE: 3 views of the foot were acquired. COMPARISON: [facility], CR, XR FOOT RT MIN 3V, 04/23/2019, 14:11. FINDINGS: Bones: No fractures or dislocations. Moderate 1st MTP joint space narrowing and juxta-articular osteophytosis. No suspicious bony lesions. Soft tissues: No tibiotalar joint effusion. Achilles tendon appears normal. IMPRESSION: 1. No acute bony abnormality. 2. Moderate 1st MTP joint osteoarthritis. Dictated by: Kenna Lockhart M.D. on 10/01/2023 at 17:24 Approved by: Kenna Lockhart M.D. on 10/01/2023 at 17:25
--- NOTE | 2023-10-01 11:33 | DI.RAD.S_ITS ---
PROCEDURE: XR FOOT RT MIN 3V INDICATIONS: bilateral hand and foot pain TECHNIQUE: 3 views of the foot were acquired. COMPARISON: [facility], , XR FOOT RT MIN 3V, 04/23/2019, 14:11. FINDINGS: Bones: No fractures or dislocations. Severe 1st MTP joint space narrowing and juxta-articular osteophytosis. No suspicious bony lesions. Soft tissues: No tibiotalar joint effusion. Achilles tendon appears normal. IMPRESSION: 1. No acute bony abnormality. 2. Severe 1st MTP joint osteoarthritis. Dictated by: Kenna Lockhart M.D. on 10/01/2023 at 17:24 Approved by: Kenna Lockhart M.D. on 10/01/2023 at 17:24
--- NOTE | 2023-10-01 11:33 | DI.RAD.S_ITS ---
PROCEDURE: XR HAND RT MIN 3V INDICATIONS: bilateral hand and foot pain TECHNIQUE: 3 views of the hand(s) acquired. COMPARISON: None. FINDINGS: Bones: No fractures or dislocations. Corticated ossific density in the dorsal aspect of the PIP joint of the 3rd phalanx, likely an accessory ossicle or sequela of remote trauma. Carpal bones are normally aligned. Mild 1st CMC and diffuse IP joint space narrowing. No suspicious bony lesions. Soft tissues: No suspicious soft tissue calcifications. IMPRESSION: 1. No acute bony abnormality. 2. Mild 1st CMC and diffuse IP joint osteoarthritis. Dictated by: Kenna Lockhart M.D. on 10/01/2023 at 17:19 Approved by: Kenna Lockhart M.D. on 10/01/2023 at 17:22
--- NOTE | 2023-10-01 11:33 | DI.RAD.S_ITS ---
PROCEDURE: XR HAND LT MIN 3V INDICATIONS: bilateral hand and foot pain TECHNIQUE: 3 views of the hand(s) acquired. COMPARISON: None. FINDINGS: Bones: No fractures or dislocations. Corticated ossific density adjacent to the ulnar styloid, likely sequela of remote trauma versus accessory ossicle. Carpal bones are normally aligned. Mild diffuse IP joint space narrowing. Mild 1st CMC joint space narrowing. No suspicious bony lesions. Soft tissues: No suspicious soft tissue calcifications. IMPRESSION: 1. No acute bony abnormality. 2. Mild 1st CMC and diffuse IP joint osteoarthritis. Dictated by: Kenna Lockhart M.D. on 10/01/2023 at 17:18 Approved by: Kenna Lockhart M.D. on 10/01/2023 at 17:19
[2023-10-01 12:01] LABS: Add Manual Diff / Slide Review NO; Basophils Absolute Auto 0 /uL (0-100); Basophils Percent Auto 0.7 % (0-2); Eosinophils Absolute Auto 200 /uL (0-450); Eosinophils Percent Auto 2.9 % (2-4); Hematocrit 39.4 % (36-46); Hemoglobin 13.3 g/dL (12.0-16.0); Lymphocytes Absolute Auto 1600 /uL (1100-4500); Lymphocytes Percent Auto 29.2 % (25-40); Mean Corpuscular HGB Conc 33.8 % (30-36); Mean Corpuscular Hemoglobin 31.2 PG (26-34); Mean Corpuscular Volume 92.3 fL (80-100); Monocytes Absolute Auto 300 /uL (0-900); Neutrophils Absolute Auto 3300 /uL (1500-7000); Neutrophils Percent Auto 61.2 % (50-75); Platelet Count 269 X10^3/uL (150-400); Red Blood Cell Count 4.27 X10^6/uL (4.0-5.2); Red Cell Distribution Width 14.2 % (11.6-14.8); White Blood Cell Count 5.4 X10^3/uL (4.5-11.0)
[2023-10-01 12:11] LABS: Alanine Aminotransferase 19 IU/L (<35); Albumin Globulin Ratio 1.5 (1.0-2.8); Alkaline Phosphatase 54 U/L (38-126); Aspartate Aminotransferase 24 IU/L (14-36); BUN Creatinine Ratio 24.7 (6-22); Bilirubin Total 0.5 mg/dL (0.2-1.3); Blood Urea Nitrogen 19 mg/dL (7-17); C-Reactive Protein Quant 0.7 mg/dL (<1.0); Calcium 9.9 mg/dL (8.4-10.2); Carbon Dioxide 33 mmol/L (22-32); Chloride 99 mmol/L (98-107); Cholesterol 226 mg/dL (140-199); Estimated Glomerular Filt Rate > 60 mL/min (>60); Globulin 2.7 g/dL (1.7-4.1); Glucose 95 mg/dL (80-110); HDL Cholesterol 92 mg/dL (40-60); HEMOLYSIS < 15 (0-50); LDL Cholesterol Calculated 113 mg/dL (<100); Potassium 4.5 mmol/L (3.4-5.1); Sodium 136 mmol/L (137-145); Total Protein 6.7 g/dL (6.3-8.2); Triglycerides 105 mg/dL (35-150)
[2023-10-01 12:40] LABS: TSH w/ Reflex to FT4 5.22 uIU/mL (0.47-4.68)
[2023-10-01 12:41] LABS: Erythrocyte Sedimentation Rate 7 MM/HR (0-20)
[2023-10-01 20:42] LABS: Free T4, Direct Thyroxine 1.59 ng/dL (0.78-2.19)
== END ==
PROVIDERS: Family Provider Acupuncturist; PCP Nurse Practitioner Family; Referring Provider Nurse Practitioner Family; Visit Provider Nurse Practitioner Family
DX: E03.9 Hypothyroidism, unspecified (principal); E55.9 Vitamin D deficiency, unspecified; E78.5 Hyperlipidemia, unspecified; M25.50 Pain in unspecified joint; F41.9 Anxiety disorder, unspecified; M79.641 Pain in right hand; M79.672 Pain in left foot; M79.642 Pain in left hand; M79.671 Pain in right foot
CPT/HCPCS: 36415; 73130; 73630; 80053; 80061; 82306; 84439; 84443; 85025; 85651; 86140

== ENCOUNTER → 2023-11-04 16:11 | Outpatient (CLI) | payer MEDICARE, OTHER, SELFPAY ==
--- NOTE | 2023-11-04 16:15 | DI.MG.S_ITS ---
BILATERAL DIGITAL SCREENING MAMMOGRAM 3D/2D WITH CAD: 11/04/2023 CLINICAL: Routine screening. Comparison is made to exams dated: 10/15/2022 mammogram, 09/25/2021 mammogram, and 06/15/2020 mammogram - [facility]. There are scattered areas of fibroglandular density in both breasts (category b / 25%-50% glandular tissue). Current study was also evaluated with a Computer Aided Detection (CAD) system. No significant masses, calcifications, or other findings are seen in either breast. There has been no significant interval change. IMPRESSION: NEGATIVE There is no mammographic evidence of malignancy. A 1 year screening mammogram is recommended. Based on the Tyrer Cuzick model (a risk assessment model) the patient's lifetime risk is 3.5% and her 10 year risk is 2.6%. According to the ACR, ACS, and NCCN guidelines, an annual breast MRI exam along with mammogram is recommended if the patient's lifetime risk is 20% or greater. This exam was interpreted at Station ID: [id number]. NOTE: For mammograms, a report in lay terms will be sent to the patient. Approximately 15% of breast malignancies will not be visualized mammographically. In the management of a palpable breast mass, a negative mammogram must not discourage biopsy of a clinically suspicious lesion. Electronically Signed By: Reyna Pa M.D., PH.D natalio/chilo:11/06/2023 17:07:34 letter sent: Normal Exam ACR BI-RADS Category 1: Negative [id number]
== END ==
LOC: MAMMO 16:13
PROVIDERS: Family Provider Acupuncturist; PCP Nurse Practitioner Family; Referring Provider Nurse Practitioner Family; Visit Provider Nurse Practitioner Family
DX: Z12.31 Encounter for screening mammogram for malignant neoplasm of breast (principal); R92.323 Mammographic fibroglandular density, bilateral breasts
CPT/HCPCS: 77063; 77067

== ENCOUNTER → 2024-01-27 10:47 | Outpatient (CLI) | payer MEDICARE, OTHER, SELFPAY ==
[2024-01-27 12:20] LABS: Cholesterol 175 mg/dL (140-199); HDL Cholesterol 92 mg/dL (40-60); LDL Cholesterol Calculated 64 mg/dL (<100); Triglycerides 94 mg/dL (35-150)
[2024-01-27 12:45] LABS: TSH w/ Reflex to FT4 0.27 uIU/mL (0.47-4.68)
[2024-01-27 13:14] LABS: Free T4, Direct Thyroxine 1.67 ng/dL (0.78-2.19)
== END ==
PROVIDERS: Family Provider Acupuncturist; PCP Nurse Practitioner Family; Referring Provider Nurse Practitioner Family; Visit Provider Nurse Practitioner Family
DX: E78.5 Hyperlipidemia, unspecified (principal); E55.9 Vitamin D deficiency, unspecified; E03.9 Hypothyroidism, unspecified
CPT/HCPCS: 36415; 80061; 82652; 84439; 84443

== ENCOUNTER 2024-02-12 17:15 | Emergency (ER) | payer MEDICARE, OTHER, SELFPAY ==
[2024-02-12] VITALS (8 sets, daily range): BP systolic 139–158; BP diastolic 62–69; PULSE 51–62; RESP 18; TEMP 37.1; O2SAT 94–98; BMI 33.1
--- NOTE | 2024-02-12 17:25 | DI.RAD.S_ITS ---
PROCEDURE: XR KNEE RT 3V INDICATIONS: fall/pain TECHNIQUE: 3 views of the knee were acquired. COMPARISON: [facility], , XR KNEE RT 3V, 09/09/2023, 11:12. FINDINGS: Bones: No fractures or dislocations. No suspicious bony lesions. Moderate tricompartmental degenerative changes with moderate joint space loss of the medial femorotibial compartment. Soft tissues: Moderate joint effusion. No suspicious soft tissue calcifications. IMPRESSION: No acute bony abnormality. Moderate tricompartmental degenerative changes of the right knee with moderate joint effusion. If there are persistent symptoms or clinical suspicion for pathology, then repeat radiographs or advanced imaging (CT or MRI) may be considered for further evaluation. Dictated by: Gumaro Johnson M.D. on 02/12/2024 at 18:32 Approved by: Gumaro Johnson M.D. on 02/12/2024 at 18:33
--- NOTE | 2024-02-12 17:25 | DI.RAD.S_ITS ---
PROCEDURE: XR HAND LT MIN 3V INDICATIONS: fall/pain TECHNIQUE: 3 views of the hand(s) acquired. COMPARISON: [facility], CR, XR HAND RT MIN 3V, 10/01/2023, 11:47. FINDINGS: Bones: No definite fractures or dislocations. Carpal bones are normally aligned. No suspicious bony lesions. Background polyarticular degenerative changes. Chronic ossification over the distal ulna. Soft tissues: No suspicious soft tissue calcifications. IMPRESSION: Left hand without acute fracture or dislocation. If there is persistent clinical concern for occult fracture given adequate mechanism of injury, consider repeat imaging in 10-14 days. Dictated by: Gumaro Johnson M.D. on 02/12/2024 at 18:29 Approved by: Gumaro Johnson M.D. on 02/12/2024 at 18:31
--- NOTE | 2024-02-12 20:46 | DI.RAD.S_ITS ---
PROCEDURE: XR FEMUR RT MIN 2V INDICATIONS: fall TECHNIQUE: 2 views of the femur were acquired. COMPARISON: None. FINDINGS: Bones: No displaced femoral shaft fracture. Knee findings are separately dictated. Degenerative changes are seen. Soft tissues: No suspicious calcifications. IMPRESSION: Degenerative changes. No displaced femoral shaft fracture. If there is high concern for occult injury, consider repeat radiography or cross-sectional imaging. Dictated by: Kenan Herrera M.D. on 02/12/2024 at 21:35 Approved by: Kenan Herrera M.D. on 02/12/2024 at 21:36
--- NOTE | 2024-02-12 20:46 | DI.RAD.S_ITS ---
PROCEDURE: XR PELVIS 1-2V INDICATIONS: fall TECHNIQUE: 1 view(s) of the pelvis acquired. COMPARISON: None. FINDINGS: Bones: Pelvic ring appears intact. [id number] bilateral hip degenerative changes. Lumbosacral degenerative changes. Soft tissues: No suspicious calcifications. IMPRESSION: No acute radiographic abnormality on this single view study. If there is high concern for occult injury, consider repeat radiography or cross-sectional imaging. Dictated by: Kenan Herrera M.D. on 02/12/2024 at 21:36 Approved by: Kenan Herrera M.D. on 02/12/2024 at 21:37
--- NOTE | 2024-02-12 20:47 | ED.FALL ---
HPI - Fall General Chief Complaint: Fall Stated Complaint: GLF, Knee & hand pain Time Seen by Provider: 02/12/24 20:04 Source: patient Mode of arrival: Ambulatory History of Present Illness HPI Narrative: 73-year-old female had recent right knee injection, this evening tripped and fell, complains of left palmar hand MCP region discomfort, also pain to right knee, right hip. Denies hitting her head, denies loss of consciousness. Denies pain to her posterior neck, upper back, lower back. Denies injuries to her chest, abdomen, right upper extremity, left lower extremity. She denies use of blood thinner medications. Fall from: standing Place fall occurred: home Loss of consciousness: none Prolonged down time: no Context: tripped/slipped Location of injury - extremities: Left: hand and Right: knee Related Data Home Medications Medication Instructions Recorded Confirmed CA PANTOTHENATE/FOLIC ACID/VIT 1 tab PO Q DAY ##0 10/26/11 08/10/20 (MULTIVITAMIN) Calcium Carbonate/Vitamin D 1 cap PO Q DAY ##0 10/26/11 08/10/20 (#CALCIUM) Fish Oil (#FISH OIL) 1 iu PO Q DAY ##0 10/26/11 08/10/20 Loperamide Hydrochloride (#IMODIUM 2 mg PO PRN PRN Diarrhea ##0 10/26/11 08/10/20 A-D) escitalopram oxalate 20 mg tablet 20 mg PO DAILY 06/02/20 08/10/20 nortriptyline 25 mg capsule 50 mg PO BEDTIME 06/02/20 08/10/20 temazepam 15 mg capsule 15 mg PO BEDTIME PRN Sleep 06/02/20 08/10/20 trazodone 50 mg tablet 50 mg PO BEDTIME PRN Sleep 06/02/20 07/27/20 atorvastatin 20 mg tablet 20 mg PO BEDTIME 07/27/20 08/10/20 bupropion HCl 100 mg tablet,12 hr 50 mg PO BID 07/27/20 08/10/20 sustained-release clobetasol 0.05 % scalp solution 1 applic topical DAILY 07/27/20 08/10/20 levothyroxine 25 mcg tablet 0.175 mcg PO DAILY 07/27/20 08/10/20 oxybutynin chloride 5 mg tablet 5 mg PO BEDTIME 07/27/20 08/10/20 valacyclovir 1 gram tablet 1,000 mg PO DAILY 07/27/20 08/10/20 Allergies Allergy/AdvReac Type Severity Reaction Status Date / Time No Known Drug Allergies Allergy Verified 09/09/23 11:08 Review of Systems Review of Systems Narrative: as per HPI Constitutional Constitutional: Denies chills and Denies fever(s) Eyes Eyes: Denies change in vision ENT Ears, Nose, Mouth, and Throat: Denies neck pain and Denies sore throat Cardiovascular Cardiovascular: Denies chest pain and Denies dyspnea Respiratory Respiratory: Denies dyspnea Gastrointestinal Gastrointestinal: Denies abdominal pain, Denies diarrhea and Denies nausea Musculoskeletal Musculoskeletal: Denies neck pain Integumentary/Breasts Skin/Breast: Denies erythema and Denies rash Allergic/Immunologic Allergic/Immunologic: Denies urticaria Patient History Medical History Skin cancer PTSD (post-traumatic stress disorder) Anxiety Osteoporosis Arthritis Hypothyroidism (acquired) History of hyperthyroidism Elevated cholesterol Depression Leg fracture Surgical History Status post hysterectomy Social History household members: spouse Smoking Status: Former smoker alcohol intake: former Smoking Status: Former smoker alcohol intake frequency: holidays/special occasions only Substance Use Type: marijuana Exam Initial Vital Signs Initial Vital Signs: Vital Signs Pulse Rate 60 02/12/24 17:19 Blood Pressure 158/69 H 02/12/24 17:19 Pulse Oximetry 98 02/12/24 17:19 Const General: cooperative HENMT Head: atraumatic Face and sinus: face symmetric Eyes Eyelids: eyelids normal Conjunctivae: conjunctivae normal Sclera: sclerae normal Pupils: PERRL Neck Neck: normal visual inspection and trachea midline Chest Chest: normal inspection of the chest Resp Effort & Inspection: no respiratory distress Cardio Rate: regular rate Rhythm: regular rhythm Heart Sounds: no murmurs GI Inspection: non-distended Palpation: No guarding Back/Spine/Pelvis Back: normal to inspection and No back tenderness Skin General: no rashes or lesions noted Neuro General: patient alert and no focal motor deficits Extrem Other: No gross lower leg length discrepancy, small medial ecchymoses right knee from recent joint injection, some tenderness medial and lateral joint line, no patellar crepitance or gross patellar dislocation, some small knee effusion on the right side. Mild left hip tenderness anterior, no lateral tenderness. No gross deformity mid thigh but some referred pain to hip and knee on palpation. Left palm without obvious injuries or swelling, mild tenderness to MCPs volar aspect, without gross deformity or swelling, no laceration or abrasion changes. Course Orders Ordered: Discontinued Medications Ketorolac Tromethamine (Ketorolac 30 Mg/Ml Vial) 15 mg IV NOW ONE Stop: 02/12/24 23:30 Last Admin: 02/13/24 00:31 Dose: Not Given Documented By: SB Ketorolac Tromethamine (Ketorolac 30 Mg/Ml Vial) 30 mg IM NOW ONE Stop: 02/12/24 23:34 Last Admin: 02/12/24 23:59 Dose: 30 mg Documented By: NL Reevaluation(s) Reevaluation #1: Plain films right knee and left hand negative for fracture, see radiology reports. Will add x-ray right hip and entirety of right femur Reevaluation #2: X-ray right femur and hip negative. CT right knee, CT right hip studies are pending Reevaluation #3: CT right knee negative for bony injury, knee effusion noted. CT right hip series for fracture. Please refer to CT reports Additional Reevaluation(s): Right knee immobilizer placed, patient uses walker at home, will be retrieving walker, walker trial to make sure patient seems to be able to transfer and ambulate Vital Signs Vital signs: Vital Signs - 8 hr 02/12/24 19:30 02/12/24 19:30 Pulse Rate 52 L Blood Pressure 157/68 H Pulse Oximetry 96 MDM - Fall Differential Diagnosis Discussed with:: Possible fracture right knee, femur, hip. Possible fracture left hand. Critical Care Time Critical Care Time Critical Care Time: Yes Total Critical Care Time: 35 Attestation: The high probability of a clinically significant, sudden or life threatening deterioration of the musculoskeletal system required my full and direct attention, intervention and personal management. The aggregate critical care time was [35] minutes. This time is in addition to time spent performing reported procedures but includes the following: [X] Data Review and interpretation [X] Patient assessment and monitoring of vital signs [X] Documentation [X] Medication orders and management Discharge Plan Departure Patient Disposition: Home Clinical Impression: Strain of right knee, Effusion of right knee, Contusion of hand, left Instructions: How to Prevent Falls Activity Restrictions/Additional Instructions: Ground level fall with left hand pain, x-ray study is negative for fracture or dislocation injury. Right knee pain and right hip pain. X-rays of right hip femur knee negative. Additional imaging performed of right hip and right knee with CT scanning, also showed no bony injury, but did show presence of effusion fluid in the right knee. Right knee immobilizer placed. You used a walker at home, encouraged to keep using the walker at home. Follow up with your regular provider in next 2 days. Take Tylenol as needed for any discomfort. Return to this/nearest emergency department for any change worsening symptoms or any concerns prior Prescriptions: No Action nortriptyline 25 mg capsule 50 mg PO BEDTIME temazepam 15 mg capsule 15 mg PO BEDTIME PRN (Reason: Sleep) escitalopram oxalate 20 mg tablet 20 mg PO DAILY trazodone 50 mg tablet 50 mg PO BEDTIME PRN (Reason: Sleep) Loperamide Hydrochloride (#IMODIUM A-D) 2 mg PO PRN PRN (Reason: Diarrhea) Qty: 0 Fish Oil (#FISH OIL) 1 iu PO Q DAY Qty: 0 Calcium Carbonate/Vitamin D (#CALCIUM) 1 cap PO Q DAY Qty: 0 CA PANTOTHENATE/FOLIC ACID/VIT (MULTIVITAMIN) 1 tab PO Q DAY Qty: 0 atorvastatin 20 mg Tablet 20 mg PO BEDTIME levothyroxine 25 mcg Tablet 0.175 mcg PO DAILY oxybutynin chloride 5 mg Tablet 5 mg PO BEDTIME valacyclovir 1 gram Tablet 1,000 mg PO DAILY bupropion HCl 100 mg Tablet Sustained-Release 12 Hr 50 mg PO BID clobetasol 0.05 % Solution 1 applic TOPICAL DAILY Referrals: Rina Alford RN [Primary Care Provider] - Stand Alone Forms: Patient Portal/API
--- NOTE | 2024-02-12 20:48 | DI.CT.S_ITS ---
PROCEDURE: CT KNEE RIGHT WITHOUT CON INDICATIONS: Fall TECHNIQUE: Noncontrast 1-1.5 mm axial sections acquired from the mid-patella to the proximal tibia, with coronal and sagittal reformats. COMPARISON: [facility], CR, XR KNEE RT 3V, 02/12/2024, 17:27. FINDINGS: Image quality: Diagnostic Bones: Moderate to severe degenerative changes in the medial compartment in particular. There are multifocal osteophytes. No acute displaced fracture is seen. No dislocation. Patellar enthesopathy. Soft tissues: Moderate joint effusion. There is ozri-[id number] prepatellar soft tissue swelling. IMPRESSION: Advanced degenerative changes particularly the medial compartment. There is a moderate joint effusion. No acute displaced fracture is seen. If there is high concern for further derangement, consider MRI evaluation. (completed images were available for review at 11:45 p.m.) Dictated by: Kenan Herrera M.D. on 02/12/2024 at 23:59 Approved by: Kenan Herrera M.D. on 02/13/2024 at 0:02
--- NOTE | 2024-02-12 22:13 | DI.CT.S_ITS ---
PROCEDURE: CT HIP RIGHT WITHOUT CON INDICATIONS: GLF fall, pain to right knee and hip TECHNIQUE: Noncontrast 3 mm axial sections acquired through the bony pelvis. Additional 3 mm axial sections acquired through the symptomatic hip joint, with coronal and sagittal reformats. COMPARISON: [facility], CR, XR PELVIS 1-2V, 02/12/2024, 20:49. FINDINGS: Image quality: Diagnostic Bones: No acute displaced fracture or dislocation. Moderate hip degenerative changes. Soft tissues: No drainable fluid collections. Partially visualized intrapelvic structures are not well evaluated on this study, no gross abnormality. Colonic diverticula are seen. Suspected calcific tendinopathy of the greater trochanter . IMPRESSION: Degenerative changes. No acute fracture or dislocation. If there is high concern for further derangement, consider MRI evaluation. Dictated by: Kenan Herrera M.D. on 02/13/2024 at 0:02 Approved by: Kenan Herrera M.D. on 02/13/2024 at 0:04
[2024-02-12] MEDS: KETOROLAC 30 MG/ML VIAL IM (23:59)
== END 2024-02-13 00:45 | disposition home or self-care (01) ==
PROVIDERS: Emergency Provider Emergency Medicine; Family Provider Acupuncturist; PCP Nurse Practitioner Family
DX: S83.91XA Sprain of unspecified site of right knee, initial encounter (principal); M25.461 Effusion, right knee; S60.222A Contusion of left hand, initial encounter; W01.0XXA Fall on same level from slipping, tripping and stumbling without subsequent striking against object, initial encounter
CPT/HCPCS: 72170; 73130; 73552; 73562; 73700; 96372; 99283; 99291; J1885

== ENCOUNTER → 2024-03-23 10:37 | Outpatient (CLI) | payer MEDICARE, OTHER, SELFPAY ==
--- NOTE | 2024-03-23 | DI.RAD.S_ITS ---
PROCEDURE: XR CHEST 2V INDICATIONS: COUGH TECHNIQUE: 2 views of the chest were acquired. COMPARISON: None. FINDINGS: Surgical changes and devices: None. Lungs and pleura: Lungs are clear. No pleural effusions or pneumothorax. Mediastinum: Mediastinal contours are normal. Heart size is normal. Bones and chest wall: No suspicious bony abnormalities. Soft tissues appear unremarkable. IMPRESSION: No acute pulmonary process. Dictated by: Abbey Ortiz M.D. on 03/23/2024 at 16:06 Approved by: Abbey Ortiz M.D. on 03/23/2024 at 16:06
== END ==
PROVIDERS: Family Provider Acupuncturist; PCP Nurse Practitioner Family; Referring Provider Nurse Practitioner Family; Visit Provider Nurse Practitioner Family
DX: R05.9 Cough, unspecified (principal)
CPT/HCPCS: 71046

== ENCOUNTER → 2024-06-02 13:55 | Outpatient (CLI) | payer MEDICARE, OTHER, SELFPAY ==
--- NOTE | 2024-06-02 13:56 | DI.MRI.S_ITS ---
PROCEDURE: MR KNEE RT WO CON INDICATIONS: RIGHT KNEE PAIN TECHNIQUE: Noncontrast sagittal PD fast spin echo and T2 fast spin echo with fat saturation, sagittal 3-D FLASH with fat saturation; coronal T1 spin echo and PD fast spin echo with fat saturation, and axial PD fast spin echo with fat saturation through the knee. COMPARISON: None. FINDINGS: Image quality: Excellent. There is a complex tear involving the entire medial meniscus extending to superior and inferior joint surfaces. There is meniscal remodeling present consistent with a longstanding tear. There is a horizontal tear involving the body of the patient's lateral meniscus extending to the superior joint surface. There is a nondisplaced fracture in the region of the tibial spines extending into the lateral tibial plateau with associated marrow edema. ACL and PCL, collateral ligaments, and extensor mechanism appear within normal limits. There is severe chondromalacia involving the articular surface of the medial compartment and patellofemoral joint. There is a moderate-sized knee joint effusion and a small to moderate-sized Newton's cyst present. There is a multi-septated ganglion cyst posterior to the tibial metaphysis measuring 3.5 cm in maximal dimension.. IMPRESSION: 1. Nondisplaced fracture involving the region of the tibial spines extending into the lateral tibial plateau with associated marrow edema. 2. Complex tear involving the entire medial meniscus with meniscal truncation and remodeling suggesting longstanding tear. 3. Horizontal tear involving the body of the patient's lateral meniscus extending to the superior joint surface. 4. 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 5. Moderate sized knee joint effusion. 6. Small to moderate-sized Newton's cyst. 7. 3.5 cm septated ganglion cyst posterior to the tibial metaphysis. Dictated by: Dean Osman M.D. on 06/02/2024 at 16:15 Approved by: Dean Osman M.D. on 06/02/2024 at 16:22
== END ==
LOC: MRI 13:56
PROVIDERS: Family Provider Acupuncturist; PCP Nurse Practitioner Family; Referring Provider Nurse Practitioner Family; Visit Provider Nurse Practitioner Family
DX: S82.114A Nondisplaced fracture of right tibial spine, initial encounter for closed fracture (principal); S83.231A Complex tear of medial meniscus, current injury, right knee, initial encounter; S83.281A Other tear of lateral meniscus, current injury, right knee, initial encounter; M22.41 Chondromalacia patellae, right knee; M25.461 Effusion, right knee; M71.21 Synovial cyst of popliteal space [Baker], right knee; M67.461 Ganglion, right knee; M25.561 Pain in right knee
CPT/HCPCS: 73721

== ENCOUNTER → 2024-06-11 14:39 | Outpatient (CLI) | payer MEDICARE, OTHER, SELFPAY ==
--- NOTE | 2024-06-11 | DI.RAD.S_ITS ---
PROCEDURE: XR SHOULDER LT MIN 2V INDICATIONS: left shoulder pain TECHNIQUE: 3 views of the shoulder were acquired. COMPARISON: None. FINDINGS: Bones: No fractures or dislocations. No suspicious bony lesions. Visualized ribs appear intact. Moderate to severe acromioclavicular and glenohumeral degenerative narrowing. Humeral head osteophyte is present. No erosions. Soft tissues: No suspicious soft tissue calcifications. IMPRESSION: Moderate to severe acromioclavicular and glenohumeral arthritic change. Dictated by: Abbey Ortiz M.D. on 06/12/2024 at 11:12 Approved by: Abbey Ortiz M.D. on 06/12/2024 at 11:13
== END ==
PROVIDERS: Family Provider Acupuncturist; PCP Nurse Practitioner Family; Referring Provider Nurse Practitioner Family; Visit Provider Nurse Practitioner Family
DX: M25.512 Pain in left shoulder (principal)
CPT/HCPCS: 73030

== ENCOUNTER → 2024-08-31 12:52 | Outpatient (CLI) | payer MEDICARE, OTHER, SELFPAY ==
[2024-08-31 14:21] LABS: Alanine Aminotransferase 20 IU/L (<35); Albumin 4.1 g/dL (3.5-5.0); Albumin Globulin Ratio 1.7 (1.0-2.8); Alkaline Phosphatase 76 U/L (38-126); Aspartate Aminotransferase 28 IU/L (14-36); BUN Creatinine Ratio 32.4 (6-22); Bilirubin Total 0.4 mg/dL (0.2-1.3); Blood Urea Nitrogen 22 mg/dL (7-17); Calcium 9.4 mg/dL (8.4-10.2); Carbon Dioxide 32 mmol/L (22-32); Chloride 102 mmol/L (98-107); Cholesterol 172 mg/dL (140-199); Estimated Glomerular Filt Rate > 60 mL/min (>60); Globulin 2.4 g/dL (1.7-4.1); Glucose 100 mg/dL (80-110); HDL Cholesterol 108 mg/dL (40-60); HEMOLYSIS < 15 (0-50); LDL Cholesterol Calculated 45 mg/dL (<100); Potassium 4.4 mmol/L (3.4-5.1); Sodium 137 mmol/L (137-145); Total Protein 6.5 g/dL (6.3-8.2); Triglycerides 93 mg/dL (35-150)
[2024-08-31 14:35] LABS: Vitamin D 25 Hydroxy (D3) 67.2 ng/mL (30.0-100.0)
[2024-08-31 14:52] LABS: TSH w/ Reflex to FT4 0.48 uIU/mL (0.47-4.68)
== END ==
LOC: LAB 12:53
PROVIDERS: Family Provider Acupuncturist
DX: E78.5 Hyperlipidemia, unspecified (principal); E55.9 Vitamin D deficiency, unspecified; E03.9 Hypothyroidism, unspecified
CPT/HCPCS: 36415; 80053; 80061; 82306; 84443

== ENCOUNTER → 2024-09-29 13:53 | Outpatient (CLI) | payer MEDICARE, OTHER, SELFPAY ==
[2024-09-29 14:20] LABS: Appearance Urine UA CLEAR; Bilirubin Urine UA NEGATIVE (NEGATIVE); Color Urine UA YELLOW; Glucose Urine UA NEGATIVE (Negative); Ketones Urine UA NEGATIVE (NEGATIVE); Leukocyte Esterase Urine UA TRACE (NEGATIVE); Nitrite Urine UA POSITIVE (Negative); Occult Blood Urine UA NEGATIVE (Negative); Protein Urine UA NEGATIVE (Negative); Specific Gravity Urine UA 1.025 (1.000-1.035); Urobilinogen Urine UA 0.2 E.U./dL (0.2)
--- NOTE | 2024-09-29 14:40 | EKG_ITS ---
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
[2024-09-29 14:41] LABS: pH Urine UA 5.5 (4.5-8.0)
[2024-09-29 14:43] LABS: Add Manual Diff / Slide Review NO; Bacteria Urine Moderate (10-30); Basophils Absolute Auto 0 /uL (0-100); Basophils Percent Auto 0.7 % (0-2); Culture Indicated Urine Specimen Cultured; Eosinophils Absolute Auto 200 /uL (0-450); Eosinophils Percent Auto 2.8 % (2-4); Hematocrit 40.8 % (36-46); Hemoglobin 13.6 g/dL (12.0-16.0); Lymphocytes Absolute Auto 1600 /uL (1100-4500); Mean Corpuscular HGB Conc 33.3 % (30-36); Mean Corpuscular Hemoglobin 30.3 PG (26-34); Monocytes Absolute Auto 400 /uL (0-900); Monocytes Percent Auto 7.3 % (3-14); Neutrophils Absolute Auto 3400 /uL (1500-7000); Neutrophils Percent Auto 60.2 % (50-75); Platelet Count 281 X10^3/uL (150-400); RBC Urine 1-5/HPF (0-5/HPF); Red Blood Cell Count 4.49 X10^6/uL (4.0-5.2); Red Cell Distribution Width 13.8 % (11.6-14.8); Squamous Epithelial Cell Urine 1-5 /HPF (0-5/HPF); Urine Volume 10mL (spun); WBC Urine 5-10/HPF (0-5/HPF); White Blood Cell Count 5.7 X10^3/uL (4.5-11.0)
[2024-09-29 14:51] LABS: Hemoglobin A1C% w Est Avg Glu 5.2 % (4.0-6.0)
[2024-09-29 15:11] LABS: BUN Creatinine Ratio 39.7 (6-22); Blood Urea Nitrogen 29 mg/dL (7-17); Calcium 9.4 mg/dL (8.4-10.2); Carbon Dioxide 33 mmol/L (22-32); Chloride 100 mmol/L (98-107); Estimated Glomerular Filt Rate > 60 mL/min (>60); Glucose 110 mg/dL (80-110); HEMOLYSIS < 15 (0-50); Potassium 4.3 mmol/L (3.4-5.1); Sodium 134 mmol/L (137-145)
== END ==
PROVIDERS: Family Provider Acupuncturist; Referring Provider Orthopaedic Surgery; Visit Provider Orthopaedic Surgery
DX: Z01.812 Encounter for preprocedural laboratory examination (principal); Z01.818 Encounter for other preprocedural examination; R73.9 Hyperglycemia, unspecified; N39.0 Urinary tract infection, site not specified
CPT/HCPCS: 36415; 80048; 81001; 83036; 85025; 87077; 87086; 87186; 93005

== ENCOUNTER → 2024-11-02 13:38 | Outpatient (CLI) | payer MEDICARE, OTHER, SELFPAY ==
[2024-11-02 15:12] LABS: TSH w/ Reflex to FT4 9.21 uIU/mL (0.47-4.68)
[2024-11-02 15:40] LABS: Free T4, Direct Thyroxine 1.23 ng/dL (0.78-2.19)
== END ==
PROVIDERS: Family Provider Acupuncturist; PCP Family Medicine; Referring Provider Family Medicine; Visit Provider Family Medicine
DX: E03.9 Hypothyroidism, unspecified (principal)
CPT/HCPCS: 36415; 84439; 84443

== ENCOUNTER → 2024-12-24 14:04 | Outpatient (CLI) | payer MEDICARE, OTHER, SELFPAY ==
--- NOTE | 2024-12-24 14:07 | DI.MG.S_ITS ---
MM screening mammo BI: 12/24/2024. BI-RADS: 1 CLINICAL: 74-year old female for bilateral screening mammogram. Tyrer-Cuzick lifetime risk of 3.3%. No personal or first-degree family history of breast cancer. PRIOR EXAMS 11/04/2023, 10/15/2022, 09/25/2021, 06/15/2020, 04/30/2018, 04/05/2016. MAMMOGRAPHY TECHNIQUE: 2D and 3D (tomosynthesis) digital mammographic views obtained, with additional images as needed for full coverage. Current study was also evaluated with a Computer Aided Detection (CAD) system. DENSITY C. The breasts are heterogeneously dense, which may obscure small masses. MAMMOGRAPHY FINDINGS Bilateral: No suspicious mass, asymmetry, microcalcification, or other abnormality seen. IMPRESSION: * No evidence of malignancy. RECOMMENDATIONS Bilateral * Annual screening mammography. OVERALL ASSESSMENT CATEGORY BI-RADS-1: Negative. The [employer] recommends annual screening mammography beginning at age 40 for women with average risk of breast cancer. ELECTRONICALLY SIGNED: Loraine Morris M.D. on 12/24/2024 at 04:48:20 PM PT Interpreting Station ID: [id number]
--- NOTE | 2024-12-24 14:07 | DI.RAD.S_ITS ---
PROCEDURE: XR DEXA AXIAL SKELETON INDICATIONS: Osteoporosis COMPARISON: [facility], , XR DEXA AXIAL SKELETON, 10/15/2022, 15:40. FINDINGS: Lumbar Spine: Bone mineral density 0.986 (previously 0.993) g/cm2, T score -0.6 (previously-0.5). Left Femoral Neck: Bone mineral density 0.596 (previously 0.605) g/cm2, T score -2.3 (previously-2.2). Left Hip: Bone mineral density 0.780 (previously 0.780) g/cm2, T score -1.3 (previously-1.3). Fracture Risk Calculation (when applicable): 10-year fracture risk of a major osteoporotic fracture 14 percent and of a hip fracture 5.3 percent. (T score greater or equal to -1.0 to: NORMAL) (T score from -1.1 to -2.4: OSTEOPENIA) (T score less than or equal to -2.5: OSTEOPOROSIS) IMPRESSION: Osteopenia---recommend repeat DEXA in 2-3 years for reassessment. Follow-up guidelines as follows: Osteoporosis: Consider a repeat DEXA and Vertebral Fracture Assessment (VFA) exam in 2 years or sooner if medically necessary, to reassess this patient's status. Osteopenia: Consider a repeat DEXA in 2-3 years to reassess this patient's status, or if there is a new clinical indication. Normal: Consider a repeat DEXA in 5 years or sooner, or if there is a new clinical indication. All treatment decisions require clinical judgment and consideration of individual patient factors, including patient preferences, comorbidities, previous drug use, risk factors not captured in the FRAX model (e.g., frailty, falls, vitamin D deficiency, increased bone turnover, interval significant decline in bone density ) and possible under- or over-estimation of fracture risk by FRAX. In addition, the NOF Guide recommends that FDA-approved medical therapies be considered in postmenopausal women and men age >= 50 years with a: * Hip or vertebral (clinical or morphometric) fracture * T-score of <=-2.5 at the spine or hip * Ten-year fracture probability by FRAX of >= 3% for hip fracture or >=20% for major osteoporotic fracture. Dictated by: Ermias Vallejo M.D. on 12/26/2024 at 5:21 Approved by: Ermias Vallejo M.D. on 12/26/2024 at 5:22
== END ==
PROVIDERS: Family Provider Acupuncturist; PCP Family Medicine; Referring Provider Family Medicine; Visit Provider Family Medicine
DX: Z12.31 Encounter for screening mammogram for malignant neoplasm of breast (principal); R92.333 Mammographic heterogeneous density, bilateral breasts; M81.0 Age-related osteoporosis without current pathological fracture
CPT/HCPCS: 77063; 77067; 77080

== ENCOUNTER → 2025-02-16 14:11 | Outpatient (CLI) | payer MEDICARE, OTHER, SELFPAY ==
[2025-02-16 15:54] LABS: Add Manual Diff / Slide Review NO; Basophils Absolute Auto 0 /uL (0-100); Basophils Percent Auto 0.5 % (0-2); Eosinophils Absolute Auto 200 /uL (0-450); Eosinophils Percent Auto 3.9 % (2-4); Hematocrit 41.8 % (36-46); Lymphocytes Absolute Auto 1900 /uL (1100-4500); Lymphocytes Percent Auto 33.3 % (25-40); Mean Corpuscular HGB Conc 33.4 % (30-36); Mean Corpuscular Hemoglobin 29.9 PG (26-34); Mean Corpuscular Volume 89.5 fL (80-100); Monocytes Absolute Auto 400 /uL (0-900); Monocytes Percent Auto 7.3 % (3-14); Neutrophils Absolute Auto 3100 /uL (1500-7000); Platelet Count 281 X10^3/uL (150-400); Red Blood Cell Count 4.67 X10^6/uL (4.0-5.2); Red Cell Distribution Width 14.8 % (11.6-14.8); White Blood Cell Count 5.6 X10^3/uL (4.5-11.0)
[2025-02-16 16:29] LABS: Alanine Aminotransferase 19 IU/L (<35); Albumin 4.4 g/dL (3.5-5.0); Albumin Globulin Ratio 1.5 (1.0-2.8); Alkaline Phosphatase 88 U/L (38-126); Aspartate Aminotransferase 31 IU/L (14-36); BUN Creatinine Ratio 31.7 (6-22); Bilirubin Total 0.4 mg/dL (0.2-1.3); Blood Urea Nitrogen 20 mg/dL (7-17); Calcium 9.4 mg/dL (8.4-10.2); Carbon Dioxide 30 mmol/L (22-32); Chloride 103 mmol/L (98-107); Estimated Glomerular Filt Rate > 60 mL/min (>60); Globulin 2.9 g/dL (1.7-4.1); Glucose 99 mg/dL (70-99); HEMOLYSIS < 15 (0-50); Potassium 4.1 mmol/L (3.4-5.1); Sodium 139 mmol/L (137-145); Total Protein 7.3 g/dL (6.3-8.2)
== END ==
PROVIDERS: Family Provider Acupuncturist; PCP Family Medicine; Referring Provider Family Medicine; Visit Provider Family Medicine
DX: E03.9 Hypothyroidism, unspecified; E78.5 Hyperlipidemia, unspecified; G47.00 Insomnia, unspecified; R63.5 Abnormal weight gain
CPT/HCPCS: 36415; 80053; 83036; 84443; 85025

== ENCOUNTER → 2025-09-06 11:49 | Outpatient (CLI) | payer MEDICARE, OTHER, SELFPAY | PROVIDERS: Family Provider Acupuncturist; PCP Family Medicine; Visit Provider Family Medicine | DX: A08.4 Viral intestinal infection, unspecified (principal) | CPT/HCPCS: 87077; 87086 ==

== ENCOUNTER → 2025-09-14 08:47 | Outpatient (CLI) | payer MEDICARE, OTHER, SELFPAY ==
--- NOTE | 2025-09-14 11:20 | ST.SWALLOW ---
Visit Care Team Role Provider Type Toshia Lozada LAC Family Provider Non-Staff Specialty: Acupuncture Address: [address] [place] [address], [place], [address] Email: Lashawn Gregory MD Attending Provider Physician Primary Care Provider Referring Provider Specialty: Family Practice [employer] TECHNICIAN Address: [facility] [place], [address] Email: [email or web address] Modified Barium Swallow Study [employer] Modified Barium Swallow Study Start: 09/14/25 10:22 Freq: Status: Active Protocol: Document 09/14/25 10:23 LNK (Rec: 09/14/25 11:17 LNK Desktop) Modified Barium Swallow Study Total Time Visit Start Time 09:00 Visit Stop Time 01:45 Total Visit Minutes 45 Referral Referring Physician Lashawn Gregory MD Reason for Referral dysphagia Setting Setting Outpatient Care Patient Information Identification Type Name,Date of Patient History Pt was seen for a Modified Barium Swallow Study with c/ o a sense of food and large pills getting stuck in her throat (pointing to sternal area). Pt reported she had been seen in the ER on 08/31/25while in [place]. She reported extreme vomiting and bile leading to dehydration. Pt was treated in the ER with fluids and Zophran. Afterward pt reported a sore throat with swelling and difficulty with swallowing her pills. When asked, pt stated she has bad acid reflux, but she is not taking medication for it. Pt also described a sense pf pressure in her sternal area after eating solids without drinking liquids, sometimes backing up into her throat. Subjective Pt was seated in the flouroscopy chair with directions Observations and procedures explained for her. She indicated she understood and agreed to proceed. Lateral View The IDDSI Framework Protocol: IDDSI.1 Oral Impairment Source: The Modified Barium Swallow Impairment Profile (MBSImP??) Lip Closure No labial escape Tongue Control Cohesive bolus between tongue to palatal seal During Bolus Hold Bolus Preparation/ Timely & efficient chewing & mashing Mastication Bolus Transport/ Brisk tongue motion Lingual Motion Oral Residue Complete oral clearance,Trace residue lining oral structures Location Tongue Initiation of Bolus head in valleculae Pharyngeal Swallow Additional Oral *OME and DKS were observed to be WNL. Impairment *Dentition natural and in good hygiene Observations *Mastication observed with rotary chew pattern. *Good bolus formation, control and AP transition. *Velopharyngeal closure was WNL. Oral phase of swallow WNL for pt's age Pharyngeal Impairment Source: The Modified Barium Swallow Impairment Profile (MBSImP??) Soft Palate No bolus between soft palate & pharyngeal wall Elevation Laryngeal Elevation Comp.sup.move.thyroid cart.w/comp.approx.arytenoids to epiglot petiole Anterior Hyoid Partial anterior movement Excursion Epiglottic Movement Complete inversion Pharyngeal Stripping Present - complete Wave Pharyngoesophageal Complete distention & complete duration; no obstruction Segment Opening of flow Tongue Base Narrow column of contrast/air betwn tongue base & post. Retraction pharyngeal wall Pharyngeal Residue Trace residue within/on pharyngeal structures Location Valleculae Additional *Hyoid/laryngeal elevation and epiglottic inversion Pharyngeal were judged to be adequate. Impairment *Tongue base retraction was mildly reduced resulting in Observations trace residue. *Pharyngeal stripping wave and cricopharyngeal opening appeared adequate and did not appear to impede bolus flow. *Post-swallow residue was mild primarily at the base of tongue, valleculae primarily with puree and regular texture. Pt did sensate to residue and independently cleared with multiple dry swallows. *No laryngeal penetration or aspiration was observed. *Pharyngeal phase WFL for pt's age. A/P View Textures Administered Trials Presented Mildly Thick Liquid via Cup (IDDSI 2) The IDDSI Framework Protocol: IDDSI.1 A/P View Observations Pharyngeal Complete Contraction Esophageal Clearance Esophageal retention w/regtrograde flow below Upright Position pharyngoesoph segment Vocal Fold Function Good Esophageal Function Stasis Additional A-P Thin barium, pudding thick barium and calibrated barium Observations tablet provided for AP trials Esophageal retention of semisolid/pudding trial observed with retro-flow to the clavicle level with pt describing pain and a sensation of globus. Pt expressed discomfort from her sternum to mid-chest area following pudding and pill trials With pudding trial, esophageal clearing was slow. Retro -flow was was observed Globus sensation cleared with swallows of liquid The results and recommendations of the MBSS were described to the pt while observing still pictures taken during the MBSS. Pt expressed appreciation and indicated she understood. All pt questions were addressed. Clinical Impressions Dysphagia Type WNL Recommendations
== END ==
LOC: RAD 08:49
PROVIDERS: Family Provider Acupuncturist; PCP Family Medicine; Referring Provider Family Medicine; Visit Provider Family Medicine
DX: R13.10 Dysphagia, unspecified (principal)
CPT/HCPCS: 74230; 92611